=== PATIENT | female | born 1960 | race Caucasian/White ===

== ENCOUNTER 2017-04-23 17:16 | Inpatient (IN) | payer MEDICAID, OTHER ==
[2017-04-23] MEDS ORDERED: HALOPERIDOL LACTATE 5 MG/ML 1 ML VIAL IM PRN ×2 (17:35→21:53)
[2017-04-23] MEDS ORDERED: diphenhydrAMINE 50 MG/ML 1 ML VIAL IM STA (17:35)
[2017-04-23] MEDS ORDERED: LORazepam 2 MG/ML INJ IM STA (17:35)
--- NOTE | 2017-04-23 17:50 | ED ---
Psych HPI - General Chief Complaint: Psychiatric Symptoms Stated Complaint: mental health Time Seen by Provider: 04/23/17 17:18 - History of Present Illness Initial Comments: Patient is a 56-year-old female who is brought in by EMS in police custody after being found wandering outside of a local grocery store for 8 hours. The patient was sitting on a bench for a period of time when the requirements manager of the store called police. Police arrived on scene and then called EMS to evaluate her. Patient revealed to EMS staff that her mind is being controlled by a "uncle lorena" and that every other person in the world were just bad actors and a bed simulation. She was informed that she was going to be transported to the hospital she became very angry and combative. On arrival to the emergency department, the patient is screaming profanities at staff, she is very physically aggressive and forceful. She was immediately placed in 4. leather restraints and given chemical sedation - Related Data Home Medications Medication Instructions Recorded Confirmed Lisinopril-Hctz 20-25 mg 1 tab PO DAILY 01/06/16 04/23/17 [Zestoretic 20-25] Loratadine 10 mg PO DAILY 01/06/16 04/23/17 ALPRAZolam [Xanax] 0.25 mg PO DAILY PRN 04/23/17 04/23/17 Amoxicillin 875 mg PO BID 04/23/17 04/23/17 PARoxetine HCL [Paxil] 40 mg PO DAILY 04/23/17 04/23/17 Previous Rx's Medication Instructions Recorded amLODIPine BESYLATE [Norvasc] 10 mg PO DAILY #30 tablet 12/23/13 Allergies Allergy/AdvReac Type Severity Reaction Status Date / Time No Known Allergies Allergy Verified 04/23/17 18:48 Review of Systems ROS Statement: Those systems with pertinent positive or pertinent negative responses have been documented in the HPI. ROS Other: All systems not noted in ROS Statement are negative. Limitations: ROS unobtainable due to patients medical condition Past Medical History Past Medical History: Hypertension, Osteoarthritis (OA) Additional Past Medical History / Comment(s): bronchitis and pneumonia in the past History of Any Multi-Drug Resistant Organisms: None Reported Past Surgical History: Orthopedic Surgery Additional Past Surgical History / Comment(s): left ankle Past Anesthesia/Blood Transfusion Reactions: No Reported Reaction Past Psychological History: Anxiety, Depression Smoking Status: Former smoker Past Alcohol Use History: Occasional Past Drug Use History: Marijuana Additional Drug Use History / Comment(s): 30 years ago - Past Family History Mother Family Medical History: Rheumatoid Arthritis (RA) Additional Family Medical History / Comment(s): arrythmia Father Family Medical History: Diabetes Mellitus, Hyperlipidemia, Hypertension, Myocardial Infarction ([place]) General Exam General appearance: alert, in distress Head exam: Present: atraumatic, normocephalic Eye exam: Present: PERRL Respiratory exam: Present: normal lung sounds bilaterally Cardiovascular Exam: Present: tachycardia (Patient is tachycardic likely secondary to agitation) GI/Abdominal exam: Present: soft. Absent: distended, tenderness Neurological exam: Present: alert, altered Psychiatric exam: Present: agitated, other (Patient is having delusions of mind control. Patient is extremely agitated and physically combative.) Skin exam: Present: warm, dry, intact Course Vital Signs 04/23/17 18:15 Temperature 97.5 F L Pulse Rate 99 Respiratory 18 Rate Blood Pressure 150/65 O2 Sat by Pulse 93 L Oximetry Procedures - Restraint - Face to Face Restraint Occurrence 1 Patient's Immediate Situation: Endangers self safety, Endangers others' safety, Endangers staff safety, Violent behavior Patient's Reaction to the Intervention: Angry, Aggressive, Combative Patient's Medical & Behavioral Condition: Awake, Agitated, Paranoid, Flight of ideas, Bizarre behavior Need to Continue or Terminate Restraint or Seclusion: Continue Medical Decision Making - Medical Decision Making Patient presents with a chief complaint of psychosis. She was found by police and EMS and clearly has delusions of persecution and mind control. On initial evaluation, patient is extremely physically and verbally combative. She was placed in leather restraints and chemically sedated with Haldol Ativan and Benadryl. 9:44 PM Plan evaluation this patient is unremarkable. After medication, the patient is more calm and cooperative. At this time, she is still displaying psychotic features. The decision was made to admit this patient to the psychiatric floor. Patient remained stable in the emergency department. - Lab Data Result diagrams: 04/23/17 18:40 04/23/17 18:40 Lab Results 04/23/17 04/23/17 Range/Units 18:40 18:40 WBC 8.9 (3.8-10.6) k/uL RBC 4.59 (3.80-5.40) m/uL Hgb 13.8 (11.4-16.0) gm/dL Hct 40.9 (34.0-46.0) % MCV 89.1 (80.0-100.0) fL MCH 30.0 (25.0-35.0) pg MCHC 33.7 (31.0-37.0) g/dL RDW 14.0 (11.5-15.5) % Plt Count 308 (150-450) k/uL Neutrophils % 71 % Lymphocytes % 20 % Monocytes % 7 % Eosinophils % 1 % Basophils % 1 % Neutrophils # 6.3 (1.3-7.7) k/uL Lymphocytes # 1.8 (1.0-4.8) k/uL Monocytes # 0.6 (0-1.0) k/uL Eosinophils # 0.1 (0-0.7) k/uL Basophils # 0.1 (0-0.2) k/uL Sodium 139 (137-145) mmol/L Potassium 3.4 L (3.5-5.1) mmol/L Chloride 100 (98-107) mmol/L Carbon Dioxide 26 (22-30) mmol/L Anion Gap 13 mmol/L BUN 20 H (7-17) mg/dL Creatinine 0.84 (0.52-1.04) mg/dL Est GFR (MDRD) Af Amer >60 (>60 ml/min/1.73 sqM) Est GFR (MDRD) Non-Af >60 (>60 ml/min/1.73 sqM) Glucose 141 H (74-99) mg/dL Calcium 9.9 (8.4-10.2) mg/dL Total Bilirubin 0.8 (0.2-1.3) mg/dL AST 78 H (14-36) U/L ALT 117 H (9-52) U/L Alkaline Phosphatase 72 (38-126) U/L Creatine Kinase 533 H (30-135) U/L Total Protein 7.1 (6.3-8.2) g/dL Albumin 4.2 (3.5-5.0) g/dL TSH 2.310 (0.465-4.680) mIU/L Disposition Clinical Impression: Psychosis, Delusions Disposition: ADMITTED IP TO THIS HOSP Condition: Good Decision to Admit Reason: Admit from EC - Out of Hospital Transfer - Req. Specs Out of Hospital Transfer - Requested Specifics: Psychiatric Non-ICU
[2017-04-23] MEDS ORDERED: ZIPRASIDONE 20 MG VIAL IM STA (18:01)
[2017-04-23 19:02] LABS: Basophils # (A) 0.1 k/uL (0-0.2); Basophils % (A) 1 %; Eosinophils # (A) 0.1 k/uL (0-0.7); Eosinophils % (A) 1 %; HCT 40.9 % (34.0-46.0); HGB 13.8 gm/dL (11.4-16.0); Lymphocytes # (A) 1.8 k/uL (1.0-4.8); Lymphocytes % (A) 20 %; MCHC 33.7 g/dL (31.0-37.0); MCV 89.1 fL (80.0-100.0); Mean Platelet Volume 7.6; Monocytes # (A) 0.6 k/uL (0-1.0); Monocytes % (A) 7 %; Neutrophils # (A) 6.3 k/uL (1.3-7.7); Neutrophils % (A) 71 %; Platelet Count 308 k/uL (150-450); RBC 4.59 m/uL (3.80-5.40); WBC 8.9 k/uL (3.8-10.6)
[2017-04-23 19:11] LABS: ALT 117 U/L (9-52); AST 78 U/L (14-36); Albumin 4.2 g/dL (3.5-5.0); Alkaline Phosphatase 72 U/L (38-126); Anion Gap 13 mmol/L; Blood Urea Nitrogen 20 mg/dL (7-17); Calcium 9.9 mg/dL (8.4-10.2); Carbon Dioxide 26 mmol/L (22-30); Chloride 100 mmol/L (98-107); Creatine Kinase 533 U/L (30-135); Glucose 141 mg/dL (74-99); Potassium 3.4 mmol/L (3.5-5.1); Sodium 139 mmol/L (137-145); Total Bilirubin 0.8 mg/dL (0.2-1.3); Total Protein 7.1 g/dL (6.3-8.2)
[2017-04-23] MEDS ORDERED: ACETAMINOPHEN TAB 325 MG TAB PO PRN (21:47)
[2017-04-23] MEDS ORDERED: MAG HYDROX/AL HYDROX/SIMETH 30 ML CUP PO PRN (21:47)
[2017-04-23] MEDS ORDERED: MAGNESIUM HYDROXIDE 2,400 MG/10 ML CUP PO PRN (21:47)
[2017-04-23] MEDS ORDERED: LORazepam 2 MG/ML INJ IM PRN (21:54)
[2017-04-23 22:16] LABS: Amorphous Sediment,Urine Rare /hpf; Appearance,Urine Turbid (Clear); Bacteria,Urine Rare /hpf; Bilirubin,Urine Negative (Negative); Blood,Urine Negative (Negative); Color,Urine Yellow; Glucose,Urine (UA) Negative (Negative); Hyaline Casts,Urine 28 /lpf (0-2); Ketones,Urine 1+ (Negative); Leukocyte Esterase,Urine Trace (Negative); Mucus,Urine Few /hpf; Nitrite,Urine Negative (Negative); PH, Urine 5.5 (5.0-8.0); Protein,Urine Trace (Negative); RBC,Urine 1 /hpf (0-5); Specific Gravity,Urine 1.024 (1.001-1.035); Squamous Epithelial Cell,Urine 7 /hpf (0-4); WBC,Urine 3 /hpf (0-5)
[2017-04-23 22:25] LABS: Amphetamine Screen,Urine Not Detected (NotDetected); Barbiturate Screen,Urine Not Detected (NotDetected); Benzodiazepines Screen,Urine Detected (NotDetected); Cocaine Screen,Urine Not Detected (NotDetected); Methadone Screen, Urine Not Detected (NotDetected); Opiate Screen,Urine Not Detected (NotDetected); Oxycodone Screen, Urine Not Detected (NotDetected); Phencyclidine Screen,Urine Not Detected (NotDetected); Tricyclic Antidepressant,Urine Not Detected (NotDetected); Urn Cannabinoid Scrn Not Detected (NotDetected)
[2017-04-24] MEDS: amLODIPine 10 MG TAB PO SCH (11:19)
[2017-04-24] MEDS: LISINOPRIL-HCTZ 20-25 MG 1 EACH TAB PO SCH (11:20)
[2017-04-24] MEDS: PARoxetine 20 MG TAB PO SCH (11:20)
[2017-04-24] MEDS: POTASSIUM CHLORIDE ER 20 MEQ TAB.ER PO SCH ×2 (13:00→15:20)
[2017-04-24] MEDS: LORATADINE 10 MG TAB PO SCH (13:00)
--- NOTE | 2017-04-24 16:10 | CONS ---
CONSULTATION DATE OF CONSULTATION: 04/24/17. REASON FOR CONSULTATION: Medical management requested by Dr. Mchugh. CONSULTATION: This is a 56-year-old patient of Dr. Hines. Chronic stable medical conditions include hypertension, osteoarthritis, obesity, BMI 39.2. The patient states she was waiting outside for her boyfriend in the car. It was very cold and then she went inside the store, started walking up and down and then she was not feeling well and then she was sitting outside on the bench for a period of time. The forestry and wildlife manager of the store called the police. Per the EMS staff, she told them her mind was controlled by Uncle Dilip and that every person in the world were bad actors and bad simulation. She was told she will go to the hospital. She became very anxious, started screaming and she did feel right about coming to the hospital. Hence, she was brought here. She understands that this is not right. She had to be put under leather restraints. Right now she feels much better when I am doing my interview. REVIEW OF SYSTEMS: CONSTITUTIONAL: None. HEENT: None. RESPIRATORY: None. CARDIOVASCULAR: None. GASTROINTESTINAL: None. GENITOURINARY: None. MUSCULOSKELETAL: Arthritic pain in different joints. DERMATOLOGICAL, HEMATOLOGIC, LYMPHATIC: None. PSYCHIATRY: Psychotic symptoms as above. NEUROLOGICAL: None. PAST MEDICAL HISTORY: Hypertension, osteoarthritis, manic depression being followed by Dr. Hatfield, psychiatry. PAST SURGICAL HISTORY: Left ankle surgery. SOCIAL HISTORY: The patient smoked for 22 years, stopped 20 years ago. Drinks alcohol occasionally. Lives by herself; is on disability. FAMILY HISTORY: Rheumatoid arthritis, arrhythmia. HOME MEDICATIONS: Norvasc 10 mg a day, Paxil 40 mg a day, Claritin 10 mg a day, Zestoretic 20/25 one tablet p.o. daily. Amoxil 875 mg p.o. b.i.d., Xanax 0.25 p.o. daily p.r.n. ALLERGIES: None. EXAMINATION: Temperature 97.6, pulse 105, respiration 16, blood pressure 150/91, pulse ox 93% on room air. GENERAL APPEARANCE: Well built, BMI 39.2, sitting up, comfortable. EYES: Pupils equal. Conjunctivae normal. HEENT: Oral cavity normal. NECK: JVD not raised. Mass not palpable. RESPIRATORY: Effort lungs are clear. CARDIOVASCULAR: First and second sounds normal. No edema. ABDOMEN: Soft, nontender. Liver and spleen not palpable. LYMPHATIC: No lymph node palpable in the neck or axillae. PSYCHIATRY: Alert and oriented x3. Mood and affect slightly anxious appearing. MUSCULOSKELETAL: Osteoarthritis minimal in the hands. INVESTIGATIONS: White count 8.9, potassium 3.4, BUN 20, creatinine 0.84. TSH normal. Urine drug screen positive for benzodiazepines. ASSESSMENT: 1. Manic depressive disorder with acute psychotic episode could be precipitated by sitting out in the cold. 2. Obesity, BMI 39.2. 3. Essential hypertension. 4. Primary osteoarthritis. PLAN: Home medications are resumed. Patient said she sees dietitian as an outpatient for weight loss measures and should follow up with Dr. Hines for discharge. Psychiatry medications being adjusted by a psychiatrist. Care was discussed with the patient. Thank you, Dr. Mchugh. MMODL / CAMIN: [id number] /
[2017-04-24] MEDS: traZODone HCL 50 MG TAB PO SCH (21:07)
[2017-04-25] MEDS: LORazepam 1 MG TAB PO PRN ×2 (01:42→22:07)
--- NOTE | 2017-04-25 06:50 | HP ---
HISTORY AND PHYSICAL DATE OF SERVICE: 04/24/2017 IDENTIFYING DATA: The patient is a 56-year-old female. She lives independently. She was admitted through the emergency room. CHIEF COMPLAINT: The patient was agitated. She had disorganized behavior including sitting outside of a local grocery store for about 8 hours presumably waiting for her boyfriend to pick her up. She made comments about mind control. She had agitation. HISTORY OF PRESENTING ILLNESS: The patient has had significant long-term psychiatric problems. She has had past psychiatric hospitalizations with the last at this facility being January 07, 2016. I refer the reader to Dr. Womack's admission note and other documentation for details. At that time she was admitted for disorganized behavior, manic symptoms, and acute psychosis. She was admitted on petition for involuntary hospitalization. She was diagnosed with major depressive disorder, recurrent, with psychotic features. Rule out bipolar disorder. Discharge medications included Paxil 20 mg a day, Geodon 60 mg twice a day, Lamictal 200 mg a day and melatonin. She has had followup through [facility] and has been seen by a Dr. Hatfield for medication. She was somewhat vague about how consistent she has been with her medications. She does say that recently she was started on trazodone 100 mg at bedtime for sleep. Her current medications by her report include Paxil 40 mg a day and Xanax 0.25 mg daily. She works with Danae Elizalde for therapy. She was not able to provide a lot of information about her current issues. She suggested that her sleep was fair. She has loss of energy and motivation. When I discussed the situation of her being out side of a local store, she said that some time she was outdoors and other times she was in her car. She said she was waiting for her boyfriend. She was not able to provide much more detail beyond that. It is noted that when she presented to the emergency room, she got into quite a bit of agitation and required restraints and p.r.n. medications. She has been calm ever since. She is admitted for further evaluation. SUBSTANCE USE HISTORY: Negative by patient's report. Dr. Womack documented in December 2015 admission note that there were no significant substance use issues. PAST MEDICAL HISTORY: The patient has a diagnosis of obesity with a BMI of 39.2. She has essential hypertension and osteoarthritis. Further medical history and review of systems as per medical consultation. FAMILY AND SOCIAL HISTORY: The only information she provided was as above. I refer the reader to Dr. Womack's admission note of December 2015 for further details. MENTAL STATUS EXAM: Patient was somewhat restless. Eye contact was fair. She answered questions with brief responses. She was vague on answer. She did not provide much detail. Her affect was constricted. Her mood quiet, though she did not appear to be significantly depressed or distressed. It was difficult to clarify whether or not there were issues of thought disorder. On cognitive exam, she was oriented and alert. She did not make an effort to answer formal cognitive questions. She seemed to be reasonably aware of her immediate situation and could provide some details regarding issues over the last day relating to her hospitalization. Fund of knowledge and intellectual level appeared average or slightly below average. PHYSICAL EXAM: As per medical consultation of Dr. Hein. ASSESSMENT: This 56-year-old female is admitted for depression and rule out bipolar disorder. We only have limited information at present with observations of quite disorganized behavior. Will need to make efforts to get supporting information through [facility] and Dr. Hatfield along with possibly setting up meetings with her significant other or other appropriate supports. DIAGNOSES: 1. Major depression, chronic and recurrent. 2. Rule out bipolar affective disorder. 3. Hypertension. 4. Osteoarthritis. RECOMMENDATIONS: Patient will be admitted for comprehensive medical psychiatric and psychosocial evaluation. We will engage the patient in individual and group therapeutic activities. I will start the patient on Paxil 40 mg a day, which she has been taking. I will also start Desyrel 50 mg at bedtime. We will work to coordinate with outpatient resources for treatment and discharge planning. MMODL / IJN: [id number] /
[2017-04-25] MEDS: amLODIPine 10 MG TAB PO SCH (09:24)
[2017-04-25] MEDS: LISINOPRIL-HCTZ 20-25 MG 1 EACH TAB PO SCH (09:24)
[2017-04-25] MEDS: LORATADINE 10 MG TAB PO SCH (09:24)
[2017-04-25] MEDS: PARoxetine 20 MG TAB PO SCH (09:24)
[2017-04-25 10:14] LABS: ALT 127 U/L (9-52); AST 86 U/L (14-36); Albumin 3.9 g/dL (3.5-5.0); Alkaline Phosphatase 63 U/L (38-126); Anion Gap 12 mmol/L; Blood Urea Nitrogen 16 mg/dL (7-17); Carbon Dioxide 25 mmol/L (22-30); Chloride 100 mmol/L (98-107); Glucose 240 mg/dL (74-99); Potassium 4.2 mmol/L (3.5-5.1); Sodium 137 mmol/L (137-145); Total Bilirubin 0.6 mg/dL (0.2-1.3); Total Protein 6.7 g/dL (6.3-8.2)
[2017-04-25] MEDS: traZODone HCL 50 MG TAB PO SCH (20:17)
[2017-04-26 06:14] VITALS: TEMP 97.7
[2017-04-26] MEDS: PARoxetine 20 MG TAB PO SCH (08:40)
[2017-04-26] MEDS: amLODIPine 10 MG TAB PO SCH (08:41)
[2017-04-26] MEDS: LISINOPRIL-HCTZ 20-25 MG 1 EACH TAB PO SCH (08:41)
[2017-04-26] MEDS: LORATADINE 10 MG TAB PO SCH (08:41)
--- NOTE | 2017-04-26 10:12 | PN ---
PROGRESS NOTE DATE OF SERVICE: 04/25/2017 CHIEF COMPLAINT: The patient was agitated. She had disorganized behavior. She made comments about mind control. She was agitated. INTERVAL HISTORY: Patient has been doing fair. She had a quiet evening last night. She slept well. She says the trazodone helped. Today she has been up and about. She attends groups. She interacts with others. She seems to be doing better in her mood. Her thoughts are clear. When I talked to her today, she was able to acknowledge that what was going on that got her to the hospital was partly related to her having psychotic thinking. She acknowledges that she got paranoid. She was able to agree with the events that others described including her becoming agitated with EMG and also in the emergency room. She said her thoughts are clear. She believes that she started developing some delusional thinking over the previous weekend where she has felt that she was mistrusting others. She said that both at [place] and [facility] she had a good time. She was social. She felt that her thoughts were at order at that point. She could not really identify the specifics as to what may have made a difference. She does say today that her thoughts are clear. She has not had change in her general health. She tolerates psychotropic medications. MENTAL STATUS: Patient gave good eye contact. Psychomotor activity was a little slowed. Speech was appropriate. Her thoughts were clear. Her affect was a little blunted. Her mood was quiet. She did not appear to be distressed. ASSESSMENT: I will continue the current diagnosis and treatment plan. The patient appears to be making progress. I would look to discharge the patient in the next day or 2. We will make an effort to contact the patient's boyfriend or support friend as part of treatment and discharge planning. MMODL / IJN: [id number] /
--- NOTE | 2017-04-26 10:45 | DS ---
DISCHARGE SUMMARY DATE OF SERVICE: 04/26/2017 DATE OF ADMISSION: 04/23/2017 DATE OF DISCHARGE: 04/26/2017 ADMISSION AND DISCHARGE DIAGNOSES: 1. Major depression, chronic and recurrent with psychotic features. 2. Rule out bipolar affective disorder. 3. Hypertension. 4. Osteoarthritis. HISTORY OF PRESENTING ILLNESS: The patient was admitted due to problems she was having on the day of admission. She was at a store, presumably waiting for her boyfriend. She was there for about 8 hours. She was sitting inside for a while. She would be outside for a while. She was making strange statements such as that she was affected by mind control. She would talk excessively, have disorganized behavior and was not responding appropriately when others approached her. EMS was called. She became agitated at that point and continued to be quite distressed when she came to the hospital. She was agitated in the emergency room, feeling that people were coming after her to assault her. She required restraints. She was not able to provide much further information about the situation. She is followed by [facility] and sees Destiney Elizalde for therapy and Dr. Hatfield for medications. Current medications include Paxil 40 mg a day and Xanax 0.25 mg a day. She reported her sleep was fair. She had loss of energy and motivation. She was able to acknowledge a lot of distress though could not identify precipitants. She was admitted for further evaluation. PAST MEDICAL HISTORY AND PHYSICAL EXAM: As per medical consultation of Dr. Hein. MENTAL STATUS EXAM: The patient was somewhat restless. Eye contact fair. She answered questions with brief responses. Her answers were vague. She had a constricted affect. Her mood was quiet. She did not appear significantly distressed. It was difficult to clarify whether or not she had active symptoms of thought disorder. Cognitive exam was clear though she was not able to answer formal cognitive questions. COURSE OF HOSPITALIZATION: Patient was admitted for a comprehensive medical psychiatric and psychosocial evaluation. We engaged the patient in individual and group therapeutic activities. The patient was continued on Paxil 40 mg a day. Due to the sleep problem she was complaining about, she was also started on Desyrel 50 mg a day. Her Xanax which she had been taking on an outpatient basis was discontinued. The patient seemed to show fairly good resolution of her thought issues on the day after admission. She was able to talk about how she recognized her thoughts were delusional. She felt that her thoughts were becoming more organized and reality based since her admission. She says that she did not recognize any problem with delusions at [place] and she said she was social and spent time with people and did well. She could only recognize that perhaps sometime on the weekend prior to her admission, she started getting more paranoid. She could not really say what set off her issues. She does say that she had a boyfriend who she keeps in touch with on a daily basis. We made efforts to contact him though he did not answer his phone. We set up followup appointments through [facility]. The patient was able to engage in appropriate discharge planning. CONDITION AT DISCHARGE: Patient was stable. Mood was improved. Thoughts were clear. She tolerated her medications well. There was no indication of thought disorder. RECOMMENDATIONS AND FOLLOWUP: The patient is discharged to home. She lives alone. DISCHARGE MEDICATIONS INCLUDE: 1. Paxil 40 mg a day. 2. Trazodone 50 mg at bedtime. 3. Norvasc 10 mg daily. 4. Zestoretic one tablet daily. 5. Loratadine 10 mg daily. She has an appointment at the [facility] with Destiney Elizalde on 04/26/2017 at 11 a.m. She will be seen by Dr. Hatfield for medication follow up. She is also referred back to her primary care physician, Dr. Hines. MMJORDAN / CAMIN: [id number] /
[2017-04-26 14:18] VITALS: BP 140/67; PULSE 103; RESP 16
== END 2017-04-26 09:50 | disposition home or self-care (01) | DRG 885 ==
LOC: EC 17:16 → 3MHU 21:42
PROVIDERS: ADMIT Psychiatry & Neurology Psychiatry; ATTEND Psychiatry & Neurology Psychiatry
DX: F33.3 Major depressive disorder, recurrent, severe with psychotic symptoms (principal); Z78.1 Physical restraint status; F41.9 Anxiety disorder, unspecified; I10 Essential (primary) hypertension; M19.91 Primary osteoarthritis, unspecified site; E66.9 Obesity, unspecified; Z68.39 Body mass index [BMI] 39.0-39.9, adult; Z79.899 Other long term (current) drug therapy; Z87.891 Personal history of nicotine dependence; Z87.01 Personal history of pneumonia (recurrent)
CPT/HCPCS: 36415; 80053; 80306; 81001; 82075; 82550; 84443; 85025; 93005; 96372; 99285

== ENCOUNTER → 2017-07-11 | Outpatient (CLI) | payer OTHER ==
--- NOTE | 2017-07-11 11:46 | MM ---
Reason for exam: screening (asymptomatic). Baseline mammogram. History: Patient is postmenopausal and is nulliparous. Took hormonal contraceptives for 4 years. Physical Findings: Nurse did not find any significant physical abnormalities on exam. MG Screening Mammo w CAD Bilateral CC and MLO view(s) were taken. The breast tissue is almost entirely fat. Finding: There are typically benign round calcifications in both breasts. There is no dominant lesion. There is no discrete abnormality. These results were verbally communicated with the patient and result sheet given to the patient on 07/11/17. ASSESSMENT: Benign, BI-RAD 2 RECOMMENDATION: Routine screening mammogram of both breasts in 1 year.
== END | disposition home or self-care (01) ==
LOC: RADMAMWWP 10:44
PROVIDERS: ATTEND Family Medicine
DX: Z12.31 Encounter for screening mammogram for malignant neoplasm of breast (principal)
CPT/HCPCS: 77067

== ENCOUNTER 2018-01-14 08:14 | Emergency (ER) | payer MEDICARE, OTHER ==
[2018-01-14 08:26] VITALS: BP 164/81; PULSE 108; RESP 16; TEMP 98.2
[2018-01-14] MEDS ORDERED: FAMOTIDINE 20 MG TAB PO STA (08:37)
[2018-01-14] MEDS ORDERED: predniSONE 50 MG TAB PO STA (08:37)
[2018-01-14] MEDS ORDERED: diphenhydrAMINE 25 MG CAP PO STA (08:38)
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
--- NOTE | 2018-01-14 08:49 | ED ---
Medical Decision Making - Medical Decision Making The prescription printer was not working I did write them out on additional prescription pads Disposition Clinical Impression: Solar pruritus Disposition: HOME SELF-CARE Condition: Good Instructions: Itchy Skin (ED) Additional Instructions: Cool compresses as needed Prescriptions: diphenhydrAMINE [Benadryl] 25 mg PO QID PRN #28 capsule PRN Reason: Itching Famotidine [Pepcid] 20 mg PO BID #14 tablet predniSONE 20 mg PO BID #10 tab Is patient prescribed a controlled substance at d/c from ED?: No Referrals: Shalom Hines MD [Primary Care Provider] - 1-2 days
== END 2018-01-14 09:10 | disposition home or self-care (01) ==
LOC: EC 08:14
DX: L29.9 Pruritus, unspecified (principal); Z87.891 Personal history of nicotine dependence
CPT/HCPCS: 99282; J7512

== ENCOUNTER 2018-01-24 01:00 | Inpatient (IN) | payer MEDICARE, OTHER ==
[2018-01-24] MEDS ORDERED: METOCLOPRAMIDE 5 MG/ML 2 ML VIAL IVP STA (02:01)
[2018-01-24] MEDS ORDERED: diphenhydrAMINE 50 MG/ML 1 ML VIAL IVP STA (02:01)
[2018-01-24] MEDS ORDERED: SODIUM CHLORIDE 0.9% 1,000 ML IV STA (02:01)
[2018-01-24] MEDS ORDERED: cloNIDine HCL 0.1 MG TAB PO STA (02:02)
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
[2018-01-24 03:12] LABS: Anion Gap 12 mmol/L; Blood Urea Nitrogen 13 mg/dL (7-17); Calcium 9.7 mg/dL (8.4-10.2); Carbon Dioxide 24 mmol/L (22-30); Chloride 98 mmol/L (98-107); Glucose 124 mg/dL (74-99); Potassium 3.7 mmol/L (3.5-5.1); Sodium 134 mmol/L (137-145)
[2018-01-24 03:14] LABS: Basophils % (A) 0 %; Eosinophils # (A) 0.2 k/uL (0-0.7); Eosinophils % (A) 2 %; HGB 15.1 gm/dL (11.4-16.0); Lymphocytes # (A) 2.6 k/uL (1.0-4.8); Lymphocytes % (A) 24 %; MCH 29.9 pg (25.0-35.0); MCHC 34.4 g/dL (31.0-37.0); MCV 86.9 fL (80.0-100.0); Mean Platelet Volume 7.7; Monocytes # (A) 0.8 k/uL (0-1.0); Monocytes % (A) 7 %; Neutrophils # (A) 7.2 k/uL (1.3-7.7); Neutrophils % (A) 66 %; Platelet Count 274 k/uL (150-450); RBC 5.06 m/uL (3.80-5.40); RDW 13.5 % (11.5-15.5)
--- NOTE | 2018-01-24 03:24 | CT ---
EXAMINATION TYPE: CT brain wo con DATE OF EXAM: 01/24/2018 COMPARISON: None HISTORY: Headache CT DLP: 1072.30 mGycm Automated exposure control for dose reduction was used. FINDINGS: There is cerebral cortical atrophy. There is no mass effect nor midline shift. There is no sign of in tracranial hemorrhage. The calvarium appears intact. IMPRESSION: MILD CEREBRAL ATROPHY. NO ACUTE INTRACRANIAL ABNORMALITY.
[2018-01-24] MEDS ORDERED: ENALAPRILAT 1.25 MG/ML 1 ML VIAL IVP STA (03:54)
[2018-01-24 04:27] LABS: Appearance,Urine Clear (Clear); Bilirubin,Urine Negative (Negative); Blood,Urine Negative (Negative); Color,Urine Yellow; Glucose,Urine (UA) Negative (Negative); Ketones,Urine 1+ (Negative); Leukocyte Esterase,Urine Negative (Negative); Nitrite,Urine Negative (Negative); Protein,Urine Negative (Negative); Urobilinogen,Urine <2.0 mg/dL (<2.0)
--- NOTE | 2018-01-24 05:38 | XR ---
EXAMINATION TYPE: XR chest 2V DATE OF EXAM: 01/24/2018 COMPARISON: 12/14/2013 HISTORY: Headache. Chest pain TECHNIQUE: Frontal and lateral views of the chest are obtained. FINDINGS: Heart and mediastinum are normal. Lungs are clear. Costophrenic angles are clear. There ar e chest leads. IMPRESSION: No active cardiopulmonary disease. Normal heart. No change.
[2018-01-24] MEDS ORDERED: NALOXONE 0.4 MG/ML 1 ML VIAL IV PRN (06:29)
[2018-01-24] MEDS ORDERED: ACETAMINOPHEN TAB 325 MG TAB PO PRN (06:35)
[2018-01-24 07:43] LABS: Anion Gap 10 mmol/L; Basophils % (A) 0 %; Blood Urea Nitrogen 11 mg/dL (7-17); Calcium 9.2 mg/dL (8.4-10.2); Carbon Dioxide 25 mmol/L (22-30); Chloride 100 mmol/L (98-107); Eosinophils # (A) 0.2 k/uL (0-0.7); Eosinophils % (A) 1 %; Glucose 117 mg/dL (74-99); HCT 40.2 % (34.0-46.0); Lymphocytes # (A) 1.9 k/uL (1.0-4.8); Lymphocytes % (A) 11 %; MCH 30.7 pg (25.0-35.0); MCV 87.7 fL (80.0-100.0); Magnesium 1.8 mg/dL (1.6-2.3); Mean Platelet Volume 6.7; Monocytes # (A) 0.8 k/uL (0-1.0); Monocytes % (A) 5 %; Neutrophils # (A) 13.9 k/uL (1.3-7.7); Neutrophils % (A) 82 %; Platelet Count 291 k/uL (150-450); Potassium 3.4 mmol/L (3.5-5.1); RBC 4.58 m/uL (3.80-5.40); RDW 13.3 % (11.5-15.5); Sodium 135 mmol/L (137-145); WBC 16.9 k/uL (3.8-10.6)
[2018-01-24] MEDS ORDERED: amLODIPine 5 MG TAB PO STA (10:11)
--- NOTE | 2018-01-24 10:56 | P.CNPUL ---
History of Present Illness Consult date: 01/24/18 Requesting physician: Adebayo Hein Reason for consult: other (Critical care management) Chief complaint: Headache, loss of vision History of present illness: This is a pleasant 57-year-old female patient who follows with Dr. Hines as her primary care physician. She has a history of major depression with recurrent psychotic features, suspected bipolar disorder, hypertension, osteoarthritis. She presented to the emergency room early this morning with complaints of headache for several days including visual changes and temporary loss of vision. She has been without her medications since September 15 when she lost her insurance. She had previously been on Norvasc 10 mg daily and lisinopril HCT 2025 milligrams 1 tablet daily. Her presenting blood pressure was 217/88. She had been given clonidine, IV Vasotec and eventually started on nicardipine drip at 5 mg per hour. Her current blood pressure is 146/68. The patient is seen today in consultation in the emergency room. She is awake and alert. She states she does have a lingering headache and has trouble concentrating. No chest pain, palpitations, lightheadedness or dizziness. No shortness of breath, cough or congestion. She is maintaining O2 saturations in the mid 90s on room air. Chest x-ray shows no active cardiopulmonary process. Computed tomography scan of the brain reveals mild cerebral atrophy. No acute intracranial abnormalities. White count 16.9. Hemoglobin 14.0. Creatinine 0.61. Review of Systems Constitutional: Reports chronic headaches, Reports weakness Eyes: bilateral blurred vision Ears: deny: decreased hearing Ears, nose, mouth and throat: Reports headache Cardiovascular: Denies chest pain, Denies shortness of breath Respiratory: Denies cough Gastrointestinal: Denies abdominal pain, Denies diarrhea, Denies nausea, Denies vomiting Genitourinary: Denies dysuria, Denies hematuria Musculoskeletal: Denies myalgias Integumentary: Denies pruritus, Denies rash Neurological: Reports confusion, Reports headaches, Reports loss of vision Psychiatric: Reports anxiety, Reports depression Endocrine: Denies fatigue, Denies weight change Hematologic/Lymphatic: Reports as per HPI Allergic/Immunologic: Reports as per HPI Past Medical History Past Medical History: Hypertension, Osteoarthritis (OA) Additional Past Medical History / Comment(s): Recent generalized rash-took prednisone, arthritis in neck, back and L ankle, bronchitis and pneumonia in the past History of Any Multi-Drug Resistant Organisms: None Reported Past Surgical History: Orthopedic Surgery Additional Past Surgical History / Comment(s): left ankle fracture with surgery- has metal plate/screws and pins, dental work Past Anesthesia/Blood Transfusion Reactions: No Reported Reaction Smoking Status: Former smoker - Past Family History Mother Family Medical History: Rheumatoid Arthritis (RA) Additional Family Medical History / Comment(s): Mother had an arrythmia. She at the age of 69yrs which pt states was from kind of blockage-does not know type of blockage but states it was not in her heart. Father Family Medical History: Diabetes Mellitus, Hyperlipidemia, Hypertension, Myocardial Infarction ([place]) Additional Family Medical History / Comment(s): Father at the age of 69yrs from heart disease and diabetes. He had several MIs with the first [place] occuring at the age of 52 yrs. Medications and Allergies Home Medications Medication Instructions Recorded Confirmed Type Lisinopril-Hctz 20-25 mg 1 tab PO DAILY 01/24/18 01/24/18 History [Zestoretic 20-25] amLODIPine [Norvasc] 10 mg PO DAILY 01/24/18 01/24/18 History Allergies Allergy/AdvReac Type Severity Reaction Status Date / Time No Known Allergies Allergy Verified 01/24/18 06:50 Physical Exam Vitals: Vital Signs Temp Pulse Resp BP Pulse Ox 01/24/18 10:09 95 16 146/68 01/24/18 09:13 95 16 140/67 96 01/24/18 08:34 87 161/77 01/24/18 07:45 87 18 158/77 95 01/24/18 07:29 98 F 85 16 162/73 95 01/24/18 07:18 82 18 173/74 92 L 01/24/18 06:31 95 16 169/80 97 01/24/18 06:22 16 172/79 01/24/18 06:05 203/88 01/24/18 05:10 79 18 204/87 94 L 01/24/18 04:03 193/85 01/24/18 03:27 76 16 186/88 94 L 01/24/18 02:53 80 16 217/93 98 01/24/18 02:43 82 16 01/24/18 01:02 99.3 F 78 18 217/88 98 Intake and Output 01/23/18 01/24/18 01/24/18 22:59 06:59 14:59 Other: Weight 99.79 kg - Constitutional General appearance: obese - EENT Eyes: EOMI, PERRLA ENT: hearing grossly normal Ears: bilateral: normal - Neck Neck: normal ROM Carotids: bilateral: upstroke normal Thyroid: bilateral: normal size - Respiratory Respiratory: bilateral: CTA - Cardiovascular Rhythm: regular Heart sounds: normal: S1, S2 - Gastrointestinal General gastrointestinal: normal bowel sounds - Integumentary Integumentary: normal turgor - Neurologic Neurologic: CNII-XII intact - Musculoskeletal Musculoskeletal: generalized weakness - Psychiatric Psychiatric: A&O x's 3 Results - Laboratory Findings CBC and BMP: 01/24/18 07:21 01/24/18 07:21 Abnormal lab findings: Abnormal Labs 01/24/18 01/24/18 01/24/18 02:53 02:53 04:00 WBC 11.0 H Neutrophils # Sodium 134 L Potassium Glucose 124 H Urine Ketones 1+ H 01/24/18 01/24/18 07:21 07:21 WBC 16.9 H Neutrophils # 13.9 H Sodium 135 L Potassium 3.4 L Glucose 117 H Urine Ketones - Diagnostic Findings Chest x-ray: image reviewed Assessment and Plan Assessment: Impression: #1 Hypertensive emergency with headache and visual disturbances. Initiated on nicardipine drip at 5 mg per hour. Improved. Current blood pressure 146/68. #2 History of hypertension and had been off her medication since 09/15/2017. #3 History of major depression with suspected bipolar disorder. #4 Obesity. #5 History of noncompliance. Plan: The patient was seen and evaluated by Dr. Evans. The patient has improved and could be downgraded from critical care to selective care unit for continued monitoring. She is educated regarding the importance of medication compliance. Patient states there was an insurance issue that prevented her from filling her medications. We will continue to monitor her blood pressure closely. We' ll continue to follow and make further recommendations based on her clinical status. I, the cosigning physician, performed a history & physical examination of the patient. Lungs sounds are clear. Maintaining good O2 saturations in the 90s on room air. I discussed the assessment and plan of care with my nurse practitioner, Talia Ontiveros. I attest to the above note as dictated by her. Time with Patient: Greater than 30
[2018-01-24] MEDS ORDERED: LISINOPRIL-HCTZ 20-25 MG 1 EACH TAB PO SCH (11:00)
[2018-01-24] MEDS: cloNIDine HCL 0.1 MG TAB PO SCH ×2 (13:32→21:06)
--- NOTE | 2018-01-24 19:43 | HP ---
HISTORY AND PHYSICAL DATE OF ADMISSION: 01/24/2018 DATE OF SERVICE: 01/24/2018 PRESENTING COMPLAINT: High blood pressure. HISTORY OF PRESENTING COMPLAINT: This is a pleasant 57-year-old patient who follows with Dr. Hines. On September 15 the patient's insurance lapsed; apparently there was a change of insurance. The patient never got to take her medicines until about 2 days ago. Patient started back on her medications. With medication, patient's blood pressure was running around 170 systolic. Yesterday the patient was working in the yard in the sun. She also got some new glasses. The patient said the sun went into her eyes and then she had what was like a dark spell from both eyes for a few hours, had a headache, went inside the house, and patient then decided to present to the ER. Initial blood pressure was 217/88. The patient was put on a nicardipine drip and admitted to the ICU. Patient's blood pressure then started to come down. Since then, the patient's headache has improved. No further deficits in vision. No change in speech. No weakness in the arms. No trouble walking. Medications were further adjusted. Patient's chronic stable medical conditions otherwise include anxiety, depression, osteoarthritis. There was no chest pain, no palpitation. REVIEW OF SYSTEMS: CONSTITUTIONAL: Tired. HEENT: As above. RESPIRATORY: None. CARDIOVASCULAR: None. GASTROINTESTINAL: None. GENITOURINARY: None. MUSCULOSKELETAL: Arthritic pain in the joints. DERMATOLOGICAL: None. HEMATOLOGICAL: None. LYMPHATICS: None. PSYCHIATRY: Depression, controlled. NEUROLOGICAL: As above. No other focal. PAST MEDICAL HISTORY: 1. Hypertension. 2. Osteoarthritis. 3. Arthritis in the neck, back, left ankle. PAST SURGICAL HISTORY: 1. Left ankle fracture with surgery with metals, pins and screws. 2. Dental work. PSYCH HISTORY: Anxiety and depression. SOCIAL HISTORY: Lives by herself. She is on disability. Smoked for 24 years; stopped in . Denies alcohol. FAMILY HISTORY: Reviewed; noncontributory to presentation except that there is a family history of rheumatoid arthritis. HOME MEDICATIONS: Home medications that were just started for one day: amlodipine 10 mg a day and Zestoretic 20/25 one tablet p.o. daily. ALLERGIES: NONE. PHYSICAL EXAMINATION: VITAL SIGNS ON PRESENTATION: Temperature 99.3, pulse 78, respiration 18, blood pressure 217/88, pulse ox 98% on room air. GENERAL APPEARANCE: Well built; BMI of 41.6. Lying in bed, tired-appearing. EYES: Pupils equal. Conjunctivae normal. HEENT: External appearance of nose and ears normal. Oral cavity normal. NECK: JVD not raised. Mass not palpable. RESPIRATORY: Effort normal. LUNGS: Fair air entry. CARDIOVASCULAR: First and second sounds normal. No edema. ABDOMEN: Soft, non-tender. Liver and spleen not palpable. LYMPHATIC: No lymph node palpable in neck or axillae. PSYCHIATRY: Alert and oriented x3. Mood and affect normal. NEUROLOGICAL: Pupils equal. Cranial nerves grossly intact. Power and sensation grossly intact. INVESTIGATIONS: White count 11, hemoglobin 15.1 potassium 3.7. BUN and creatinine are normal. Troponin 0.012. UA negative for protein. EKG tracing, personally reviewed by me, shows normal sinus rhythm. Chest x-ray, personally reviewed by me, shows some cardiomegaly; otherwise lung roger are clear. CT scan of the brain: nil acute reported. ASSESSMENT: 1. Hypertensive emergency in a patient whose blood pressure was not controlled for some time, not taking her medications. Took one medication for one day, presented with very high blood pressure and temporary loss of vision in both eyes, which has now since resolved. There are no other focal symptoms. Patient initially was put on IV nicardipine drip, now switched to oral antihypertensive. 2. Morbid obesity with body mass index of 41.6. 3. Depression not otherwise specified. 4. Primary osteoarthritis in multiple joints. PLAN: The patient was on nicardipine drip. That was earlier discontinued. Patient was put on Norvasc 10 mg, Catapres 0.1 mg b.i.d., Zestoretic 20/25. Will increase that to twice a day. Also put the patient on a low-salt diet. Will consult dietitian for weight loss measures. Will order a 2-D echocardiogram to look for LVH and will also do a carotid Doppler. Patient recently had an eye checkup done and has a new set of glasses. The patient's visual symptoms have all resolved. Dr. Evans was also consulted for critical care. Care was discussed with the patient. MMODL / IJN: [id number] /
[2018-01-24] MEDS: ENOXAPARIN 40 MG/0.4 ML SYRINGE SQ SCH (21:05)
[2018-01-24] MEDS: LISINOPRIL-HCTZ 20-12.5 MG 1 EACH TAB PO SCH (21:06)
[2018-01-25 06:51] LABS: Basophils # (A) 0.1 k/uL (0-0.2); Basophils % (A) 1 %; Eosinophils # (A) 0.1 k/uL (0-0.7); Eosinophils % (A) 1 %; Lymphocytes # (A) 2.5 k/uL (1.0-4.8); Lymphocytes % (A) 27 %; MCH 29.4 pg (25.0-35.0); MCHC 34.1 g/dL (31.0-37.0); MCV 86.3 fL (80.0-100.0); Mean Platelet Volume 6.4; Monocytes # (A) 0.6 k/uL (0-1.0); Monocytes % (A) 7 %; Neutrophils # (A) 5.8 k/uL (1.3-7.7); Neutrophils % (A) 63 %; Platelet Count 311 k/uL (150-450); RBC 4.75 m/uL (3.80-5.40); RDW 13.4 % (11.5-15.5); WBC 9.2 k/uL (3.8-10.6)
[2018-01-25 06:53] VITALS: PULSE 82; RESP 16
[2018-01-25 07:02] LABS: Anion Gap 9 mmol/L; Blood Urea Nitrogen 12 mg/dL (7-17); Calcium 9.5 mg/dL (8.4-10.2); Carbon Dioxide 28 mmol/L (22-30); Chloride 99 mmol/L (98-107); Glucose 109 mg/dL (74-99); Magnesium 1.9 mg/dL (1.6-2.3); Potassium 3.8 mmol/L (3.5-5.1); Sodium 136 mmol/L (137-145)
--- NOTE | 2018-01-25 08:40 | US ---
EXAMINATION TYPE: US carotid duplex BILAT DATE OF EXAM: 01/25/2018 COMPARISON: NONE CLINICAL HISTORY: temp loss of vision. EXAM MEASUREMENTS: RIGHT: Peak Systolic Velocity (PSV) cm/sec ----- Right CCA: 71.5 ----- Right ICA: 93.1 ----- Right ECA: 99.6 ICA/CCA ratio: 1.3 RIGHT: End Diastole cm/sec ----- Right CCA: 18.4 ----- Right ICA: 38.2 ----- Right ECA: 9.1 LEFT: Peak Systolic Velocity (PSV) cm/sec ----- Left CCA: 80.2 ----- Left ICA: 80.3 ----- Left ECA: 101.2 ICA/CCA ratio: 1.0 LEFT: End Diastole cm/sec ----- Left CCA: 17.1 ----- Left ICA: 29.8 ----- Left ECA: 12.3 VERTEBRALS (direction of flow): Right Vertebral: Antegrade Left Vertebral: Antegrade Rhythm: Normal Mild to moderate amount of plaque visualized in bilateral bulbs. No elevated velocities. IMPRESSION: Mild to moderate degree of grayscale atheromatous plaquing with no sonographically evide nt hemodynamically significant stenosis within either visualized carotid arterial system.
[2018-01-25] MEDS ORDERED: amLODIPine 10 MG TAB PO SCH (09:00)
[2018-01-25] MEDS: LISINOPRIL-HCTZ 20-12.5 MG 1 EACH TAB PO SCH (09:08)
[2018-01-25] MEDS: ENOXAPARIN 40 MG/0.4 ML SYRINGE SQ SCH (09:08)
[2018-01-25] MEDS ORDERED: LORazepam 2 MG/ML INJ IV STA (09:35)
--- NOTE | 2018-01-25 10:09 | MR ---
EXAMINATION TYPE: MR brain wo/w con DATE OF EXAM: 01/25/2018 COMPARISON: CT brain 01/24/2018 HISTORY: Loss of vision for few hours with headache CONTRAST: Performed utilizing 10 mL intravenous Gadavist gadolinium contrast. TECHNIQUE: Multiplanar, multiecho imaging on a 3.0 Jess magnet is performed through the brain. Stud y is performed within 24 hours of arrival to the hospital. Fast protocol was utilized. The craniovertebral junction is normal. The pituitary is normal. Diffusion-weighted imaging is performed. No abnormal hyperintensity is present to suggest an acute i ntracranial infarct or acute ischemic change. There are scattered punctate areas of hyperintensity on T2 and Inversion Recovery weighted sequences which are non-specific but can be related to microvascular ischemic changes. This would include centr um semiovale, subcortical white matter, inferior left subcortical white matter. Some subtle white mat ter change may be within the right portion of the brainstem. Findings are nonspecific but likely rela diana to microvascular ischemic change. Differential would include other etiologies of white matter [place] n[place] including multiple sclerosis, vasculitis, Lyme disease, changes from migraine headaches. Ventricles and sulci are appropriate for the patient age. No abnormal enhancement is evident. The orbits as visualized appear normal. CSF surrounds the optic n erves and T2-weighted sequences. Optic chiasm is visualized appears normal. IMPRESSIONS: 1. Multiple white matter changes throughout the brain, greater than expected for the patient age. Gt rovascular ischemic change, migraine headache, multiple sclerosis could be considered among other jag ologies.
[2018-01-25] MEDS: cloNIDine HCL 0.1 MG TAB PO SCH (11:05)
--- NOTE | 2018-01-25 11:48 | P.PN ---
Subjective Progress Note Date: 01/25/18 Principal diagnosis: Hypertensive urgency This is a pleasant 57-year-old female patient who follows with Dr. Hines as her primary care physician. She has a history of major depression with recurrent psychotic features, suspected bipolar disorder, hypertension, osteoarthritis. She presented to the emergency room early this morning with complaints of headache for several days including visual changes and temporary loss of vision. She has been without her medications since September 15 when she lost her insurance. She had previously been on Norvasc 10 mg daily and lisinopril HCT 2025 milligrams 1 tablet daily. Her presenting blood pressure was 217/88. She had been given clonidine, IV Vasotec and eventually started on nicardipine drip at 5 mg per hour. Her current blood pressure is 146/68. The patient is seen today in consultation in the emergency room. She is awake and alert. She states she does have a lingering headache and has trouble concentrating. No chest pain, palpitations, lightheadedness or dizziness. No shortness of breath, cough or congestion. She is maintaining O2 saturations in the mid 90s on room air. Chest x-ray shows no active cardiopulmonary process. Computed tomography scan of the brain reveals mild cerebral atrophy. No acute intracranial abnormalities. White count 16.9. Hemoglobin 14.0. Creatinine 0.61. The patient is seen again today 01/25/2018 in follow-up on the selective care unit. She is currently awake and alert in no acute distress. She is doing quite a bit better today as compared to yesterday. Stating her head is clear, no confusion. She does have ongoing headache. Her blood pressure is improved currently 137/74. She's afebrile. Maintaining good O2 saturations in the 90s on room air. No shortness of breath, cough or congestion. White count 9.2. Hemoglobin 14.0. Creatinine 0.70. She remains on amlodipine, clonidine, lisinopril HCTZ. MRI of the brain revealed multiple white matter changes throughout the brain, greater than expected for the patient's age. Microvascular ischemic change, migraine headache, multiple sclerosis within the differential's. Carotid dopplers revealed no significant carotid stenosis. Objective - Vital Signs Vital signs: Vital Signs Temp 98.2 F 01/25/18 09:09 Pulse 82 01/25/18 09:09 Resp 16 01/25/18 09:09 BP 137/74 01/25/18 09:09 Pulse Ox 98 01/25/18 09:09 Intake & Output 01/24/18 01/25/18 01/25/18 18:59 06:59 18:59 Intake Total 482 Balance 482 Weight 89.2 kg Intake: Intake, IV Titration 260 Amount niCARdipine 25 mg In 260 Sodium Chloride 0.9% 250 ml @ 5 MG/HR 52 mls/hr IV .Q5H ONE Rx#:[id number] Oral 222 Other: # Voids 1 - Constitutional General appearance: Present: cooperative, no acute distress, obese - EENT Eyes: Present: EOMI, PERRLA ENT: Present: hearing grossly normal Ears: bilateral: normal - Neck Neck: Present: normal ROM Carotids: bilateral: upstroke normal Thyroid: bilateral: normal size - Respiratory Respiratory: bilateral: CTA - Cardiovascular Rhythm: regular Heart sounds: normal: S1, S2 - Gastrointestinal General gastrointestinal: Present: normal bowel sounds - Integumentary Integumentary: Present: normal turgor - Neurologic Neurologic: Present: CNII-XII intact - Musculoskeletal Musculoskeletal: Present: gait normal - Psychiatric Psychiatric: Present: A&O x's 3, appropriate affect, intact judgment & insight - Labs CBC & Chem 7: 01/25/18 06:30 01/25/18 06:30 Labs: Abnormal Lab Results - Last 24 Hours (Table) 01/25/18 Range/Units 06:30 Sodium 136 L (137-145) mmol/L Glucose 109 H (74-99) mg/dL - Imaging and Cardiology MRI - head: report reviewed Assessment and Plan Assessment: Impression: #1 Hypertensive emergency with headache and visual disturbances. Improved. Currently on clonidine, lisinopril HCTZ, amlodipine. Carotid Dopplers revealed no significant carotid stenosis. MRI of the brain revealed multiple white matter changes throughout the brain, greater than expected for the patient's age. There is microvascular ischemic change, migraine headache, multiple sclerosis, vasculitis, Lyme disease within the differential. #2 History of hypertension and had been off her medication since 09/15/2017. #3 History of major depression with suspected bipolar disorder. #4 Obesity. #5 History of noncompliance. Plan: The patient was seen and evaluated by Dr. Evans. She remains stable from the pulmonary standpoint. Continue with her current treatment plan. Lovenox for DVT prophylaxis. Social work is involved regarding financing her necessary medications. I, the cosigning physician, performed a history & physical examination of the patient. Lungs sounds are clear. Maintaining good O2 saturations in the 90s on room air. I discussed the assessment and plan of care with my nurse practitioner, Talia Ontiveros. I attest to the above note as dictated by her.
[2018-01-25] MEDS ORDERED: ONDANSETRON 4 MG/2 ML VIAL IVP PRN (12:58)
[2018-01-25 17:19] VITALS: BP 136/60; TEMP 97.7
--- NOTE | 2018-01-25 18:11 | ECHOF ---
Referral Reason:HTN MEASUREMENTS -------- HEIGHT: 154.9 cm WEIGHT: 88.9 kg BP: 170/77 IVSd: 1.7 cm (0.6 - 1.1) LVIDd: 3.1 cm (3.9 - 5.3) LVPWd: 1.8 cm (0.6 - 1.1) IVSs: 2.0 cm LVIDs: 1.8 cm LVPWs: 2.2 cm Ao Diam: 3.1 cm (2.0 - 3.7) AV Cusp: 2.0 cm (1.5 - 2.6) LA Diam: 3.3 cm (2.7 - 3.8) MV EXCURSION: 12.495 mm (> 18.000) MV EF SLOPE: 38 mm/s (70 - 150) EPSS: 0.3 cm MV E Damien: 0.40 m/s MV DecT: 197 ms MV A Damien: 0.56 m/s MV E/A Ratio: 0.70 RAP: 5.00 mmHg RVSP: 10.65 mmHg FINDINGS -------- Sinus rhythm. This was a technically good study. The left ventricular size is normal. There is severe concentric left ventricular hypertrophy. Ove rall left ventricular systolic function is normal with, an EF between 55 - 60 %. The right ventricle is normal in size and function. The left atrium is normal in size. The right atrium is normal in size. The aortic valve is trileaflet and appears structurally normal. The mitral valve leaflets are mildly thickened. Mild mitral regurgitation is present. Mild tricuspid regurgitation present. The right ventricular systolic pressure, as measured by Doppl er, is 10.65mmHg. Pulmonic valve appears structurally normal. The aortic root size is normal. The pericardium is normal. CONCLUSIONS -------- 1. Sinus rhythm. 2. This was a technically good study. 3. The left ventricular size is normal. 4. There is severe concentric left ventricular hypertrophy. 5. Overall left ventricular systolic function is normal with, an EF between 55 - 60 %. 6. The right ventricle is normal in size and function. 7. The left atrium is normal in size. 8. The right atrium is normal in size. 9. The aortic valve is trileaflet and appears structurally normal. 10. The mitral valve leaflets are mildly thickened. 11. Mild mitral regurgitation is present. 12. Mild tricuspid regurgitation present. 13. The right ventricular systolic pressure, as measured by Doppler, is 10.65mmHg. 14. Pulmonic valve appears structurally normal. 15. The aortic root size is normal. 16. The pericardium is normal. SCIENTIFIC SOFTWARE DEVELOPER: Valerie Randle RDCS
--- NOTE | 2018-01-30 | DS ---
DISCHARGE SUMMARY DATE OF ADMISSION: 01/24/2018 DATE OF DISCHARGE: 01/25/2018 FINAL DIAGNOSES: 1. Hypertensive emergency, present on admission. 2. Morbid obesity with body mass index 41.6. 3. Depression not otherwise specified. 4. Primary osteoarthritis in multiple joints. 5. Hypertensive heart disease, severe. HOSPITAL COURSE: This patient presented with hypertensive emergency, blood pressure over 200, and temporary loss of vision, which completely resolved. Patient was initially put on IV nicardipine drip. She did have a CT scan of the brain which did not show anything acute. MRI of the brain showed some chronic white matter changes, scattered. Patient did not want to wait for any further workup and insisted that she would follow up with Neurology as an outpatient. Since there were no deficits, and patient was doing better, she is going to follow up with Dr. Kern. A 2D echocardiogram showed an EF of 55% to 60% with with severe concentric left ventricular hypertrophy. Initial blood pressure was very high. By the time of discharge, blood pressure has come down nicely to 136/60. LABS: White count 9.2, hemoglobin 14. BUN and creatinine are normal. Care was discussed with the patient. Questions were answered. CONSULTATION: Dr. Evans from Critical Care. DISCHARGE MEDICATIONS: 1. Aspirin 81 mg a day. 2. Catapres 0.1 mg p.o. b.i.d. 3. Zestoretic 20/12.5 was discontinued. 4. Norvasc 10 mg a day. Follow up with Dr. Fred Kern in one week. Follow up with Dr. Shalom Hines in one week. MMODL / IJN: [id number] /
== END 2018-01-25 18:25 | disposition home or self-care (01) | DRG 305 ==
LOC: EC 01:00 → 6ICU 06:29 → 6SEL 14:58
PROVIDERS: ADMIT Hospitalist; ATTEND Hospitalist
DX: I16.1 Hypertensive emergency (principal); Z68.41 Body mass index [BMI] 40.0-44.9, adult; E66.01 Morbid (severe) obesity due to excess calories; F32.9 Major depressive disorder, single episode, unspecified; F41.9 Anxiety disorder, unspecified; I10 Essential (primary) hypertension; M15.9 Polyosteoarthritis, unspecified; R51 Headache; M06.9 Rheumatoid arthritis, unspecified; H53.9 Unspecified visual disturbance; Z79.899 Other long term (current) drug therapy; Z91.14 Patient's other noncompliance with medication regimen; Z87.891 Personal history of nicotine dependence; Z87.01 Personal history of pneumonia (recurrent); Z83.3 Family history of diabetes mellitus; Z82.49 Family history of ischemic heart disease and other diseases of the circulatory system; Z84.89 Family history of other specified conditions
CPT/HCPCS: 36415; 70450; 70553; 71046; 80048; 81003; 83735; 84100; 84484; 85025; 93005; 93306; 93880; 96361; 96365; 96366; 96375; 99291

== ENCOUNTER 2018-05-08 01:34 | Emergency (ER) | payer MEDICARE, OTHER ==
[2018-05-08 01:44] VITALS: RESP 18
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
[2018-05-08 03:17] LABS: Amphetamine Screen,Urine Not Detected (NotDetected); Barbiturate Screen,Urine Not Detected (NotDetected); Benzodiazepines Screen,Urine Not Detected (NotDetected); Cocaine Screen,Urine Not Detected (NotDetected); Methadone Screen, Urine Not Detected (NotDetected); Opiate Screen,Urine Not Detected (NotDetected); Oxycodone Screen, Urine Not Detected (NotDetected); Phencyclidine Screen,Urine Not Detected (NotDetected); Tricyclic Antidepressant,Urine Not Detected (NotDetected); Urn Cannabinoid Scrn Detected (NotDetected)
[2018-05-08] MEDS ORDERED: LORazepam 1 MG TAB PO STA (03:24)
[2018-05-08 05:10] LABS: Basophils # (A) 0.1 k/uL (0-0.2); Basophils % (A) 1 %; Eosinophils # (A) 0.2 k/uL (0-0.7); Eosinophils % (A) 2 %; HCT 38.7 % (34.0-46.0); HGB 12.6 gm/dL (11.4-16.0); Lymphocytes # (A) 2.5 k/uL (1.0-4.8); Lymphocytes % (A) 25 %; MCHC 32.5 g/dL (31.0-37.0); MCV 92.2 fL (80.0-100.0); Mean Platelet Volume 6.4; Monocytes # (A) 0.6 k/uL (0-1.0); Monocytes % (A) 6 %; Neutrophils # (A) 6.3 k/uL (1.3-7.7); Neutrophils % (A) 63 %; Platelet Count 385 k/uL (150-450); RDW 13.2 % (11.5-15.5)
[2018-05-08 05:13] LABS: Appearance,Urine Clear (Clear); Bilirubin,Urine Negative (Negative); Blood,Urine Negative (Negative); Color,Urine Light Yellow; Glucose,Urine (UA) Negative (Negative); Ketones,Urine Negative (Negative); Leukocyte Esterase,Urine Large (Negative); Mucus,Urine Rare /hpf; Nitrite,Urine Negative (Negative); PH, Urine 5.5 (5.0-8.0); Protein,Urine Negative (Negative); RBC,Urine 5 /hpf (0-5); Specific Gravity,Urine 1.007 (1.001-1.035); Squamous Epithelial Cell,Urine 1 /hpf (0-4); Urobilinogen,Urine <2.0 mg/dL (<2.0); WBC,Urine 13 /hpf (0-5)
[2018-05-08 05:15] LABS: ALT 26 U/L (9-52); AST 19 U/L (14-36); Albumin 3.6 g/dL (3.5-5.0); Alkaline Phosphatase 67 U/L (38-126); Anion Gap 6 mmol/L; Blood Urea Nitrogen 15 mg/dL (7-17); Calcium 9.6 mg/dL (8.4-10.2); Carbon Dioxide 30 mmol/L (22-30); Chloride 104 mmol/L (98-107); Glucose 129 mg/dL (74-99); Potassium 3.9 mmol/L (3.5-5.1); Sodium 140 mmol/L (137-145); Total Bilirubin 0.2 mg/dL (0.2-1.3); Total Protein 6.4 g/dL (6.3-8.2)
[2018-05-08 11:08] VITALS: BP 163/75; PULSE 89; TEMP 97.9
== END 2018-05-08 12:01 ==
LOC: EC 01:34
DX: F32.9 Major depressive disorder, single episode, unspecified (principal); R45.851 Suicidal ideations; R41.82 Altered mental status, unspecified; R00.0 Tachycardia, unspecified; I10 Essential (primary) hypertension; F41.9 Anxiety disorder, unspecified; Z87.891 Personal history of nicotine dependence; Z79.899 Other long term (current) drug therapy; Z82.49 Family history of ischemic heart disease and other diseases of the circulatory system
CPT/HCPCS: 36415; 80053; 80306; 80320; 81001; 81025; 82075; 85025; 99285

== ENCOUNTER → 2018-08-09 | Outpatient (CLI) | payer MEDICARE ==
--- NOTE | 2018-08-09 15:23 | XR ---
EXAMINATION TYPE: XR lumbosacral spine min 4V DATE OF EXAM: 08/09/2018 CLINICAL HISTORY: Low back pain TECHNIQUE: Frontal, lateral, and oblique images of the lumbar spine are obtained. COMPARISON: 07/08/2015 FINDINGS: There are 5 lumbar type vertebral bodies identified. There is a mild levoscoliosis of the lumbar spine although progressed from the prior. There is persistent grade 1 anterolisthesis of L4 on L5, also slightly progressed from the prior now measuring approximately 8 mm and previously measurin g approximately 6 mm. There is minimal retrolisthesis of L1 on L2, L2 on L3 and L3 and L4. Findings a re likely on a degenerative basis. Bridging anterior osteophytes are seen of the lower thoracic spine and small anterior osteophytes of the lumbar spine. Facet arthropathy is present from L3 through S1 with intervertebral disc space narrowing at L5-S1. Mild atherosclerosis of the abdominal aorta. Obliq ue images demonstrate no definite pars interarticularis defects and neural foraminal narrowing is mg pected at L5-S1 and L4-L5. IMPRESSION: 1. No acute fracture or malalignment is seen in the lumbar spine. 2. Progression of degenerative disc disease in comparison the prior with progression of anterolisthes is of L4 on L5 and new multilevel retrolisthesis all likely on a degenerative basis. 3. Mild levoscoliosis of the lumbar spine.
--- NOTE | 2018-08-09 15:26 | XR ---
EXAMINATION TYPE: XR cervical spine comp DATE OF EXAM: 08/09/2018 TECHNIQUE: Frontal, lateral, oblique, swimmers, and open mouth view of the cervical spine are obtaine d. HISTORY: M54.2 cervicalgia COMPARISON: None FINDINGS: There is straightening of the usual cervical lordosis. The cervical spine is visualized in its entirety from C1 thru the top of T1 level, it is satisfactory in alignment without evidence of ac theresa fracture or dislocation. Multilevel intervertebral disc space narrowing and anterior osteophytes are seen. The pre-vertebral soft tissue appears within normal limits. Mild multilevel uncovertebral h ypertrophy is seen however no yovana neural foraminal narrowing is seen on the oblique images. This co uld be better evaluated with MRI. The C1-C2 articulation is within normal limits on the open mouth vi ew. Atherosclerosis is incidentally noted of the carotid bulbs. IMPRESSION: 1. No acute fracture or malalignment is seen in the cervical spine. 2. Moderate degenerative disc disease of the cervical spine and straightening of usual cervical lordo sis that may relate to muscular sprain/spasm.
== END | disposition home or self-care (01) ==
LOC: RADXRMAIN 14:11
PROVIDERS: ATTEND Family Medicine
DX: M50.30 Other cervical disc degeneration, unspecified cervical region (principal); M51.36 Other intervertebral disc degeneration, lumbar region; M43.16 Spondylolisthesis, lumbar region; M41.86 Other forms of scoliosis, lumbar region
CPT/HCPCS: 72050; 72110

== ENCOUNTER → 2018-08-20 | Outpatient (CLI) | payer MEDICARE, OTHER ==
--- NOTE | 2018-08-22 08:45 | MM ---
Reason for exam: screening (asymptomatic). Last mammogram was performed 1 year and 1 month ago. History: Patient is postmenopausal and is nulliparous. Took hormonal contraceptives for 4 years. Physical Findings: A clinical breast exam by your physician is recommended on an annual basis and results should be correlated with mammographic findings. MG 3D Screening Mammo W/Cad Bilateral CC and MLO view(s) were taken. Prior study comparison: July 11, 2017, bilateral MG screening mammo w CAD. There are scattered fibroglandular densities. No significant changes when compared with prior studies. ASSESSMENT: Negative, BI-RAD 1 RECOMMENDATION: Routine screening mammogram of both breasts in 1 year.
== END | disposition home or self-care (01) ==
LOC: RADMAMWWP 14:46
PROVIDERS: ATTEND Family Medicine
DX: Z12.31 Encounter for screening mammogram for malignant neoplasm of breast (principal)
CPT/HCPCS: 77063; 77067

== ENCOUNTER 2018-11-21 04:20 | Emergency (ER) | payer MEDICARE, OTHER ==
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
[2018-11-21 04:37] VITALS: RESP 18; TEMP 98.9
--- NOTE | 2018-11-21 05:35 | CT ---
EXAM: CT Cervical Spine Without Intravenous Contrast CLINICAL HISTORY: Pain TECHNIQUE: Axial computed tomography images of the cervical spine without intravenous contrast. CTDI is 18.37 mGy and DLP is 500.8 mGy-cm. This CT exam was performed using one or more of the following dose reduction techniques: automated exposure control, adjustment of the mA and/or kV according to patient size, and/or use of iterative reconstruction technique. Coronal and sagittal reconstructions are performed COMPARISON: Cervical spine radiographs from 08/09/2018 FINDINGS: Vertebrae: 4 mm chip fracture at the tip of C6 spinous process, superiorly displaced by about 2 mm, previously inferiorly displaced by about 4 mm. Discs/spinal canal/neural foramina: Moderate degenerative disc disease, worse in the lower cervical spine. Soft tissues: Unremarkable. IMPRESSION: No acute subluxation or fracture.
--- NOTE | 2018-11-21 05:39 | CT ---
EXAM: CT Cervical Spine Without Intravenous Contrast CLINICAL HISTORY: ITS.REASON CT Reason: pain TECHNIQUE: Axial computed tomography images of the cervical spine without intravenous contrast. CTDI is 18 mGy and DLP is 496 mGy-cm. This CT exam was performed using one or more of the following dose reduction techniques: automated exposure control, adjustment of the mA and/or kV according to patient size, and/or use of iterative reconstruction technique. COMPARISON: No relevant prior studies available. FINDINGS: Vertebrae: No acute fracture. Discs/spinal canal/neural foramina: Degenerative changes from C5-C7. No high grade spinal canal stenosis. Soft tissues: Unremarkable. IMPRESSION: No acute fracture or subluxation.
[2018-11-21] MEDS ORDERED: ACETAMINOPHEN TAB 500 MG TAB PO STA (06:18)
--- NOTE | 2018-11-21 06:26 | XR ---
EXAM: XR Lumbar Spine, 3 Views CLINICAL HISTORY: Pain TECHNIQUE: Frontal, coned down lateral and lateral views of the lumbar spine. COMPARISON: 08-09-18 FINDINGS: Vertebrae: 7 mm anterolisthesis of L4 on L5. No compression fracture. Disc spaces: No acute findings. No significant narrowing. Soft tissues: Paravertebral soft tissues appear normal. Small amount aortic calcifications. IMPRESSION: No acute findings or substantial change.
[2018-11-21 07:14] VITALS: BP 146/97; PULSE 96
== END 2018-11-21 07:11 | disposition home or self-care (01) ==
LOC: EC 04:20
DX: T74.11XA Adult physical abuse, confirmed, initial encounter (principal); M54.2 Cervicalgia; M54.9 Dorsalgia, unspecified; I10 Essential (primary) hypertension; F41.9 Anxiety disorder, unspecified; F32.9 Major depressive disorder, single episode, unspecified; Z87.39 Personal history of other diseases of the musculoskeletal system and connective tissue; Z87.891 Personal history of nicotine dependence; Z79.899 Other long term (current) drug therapy; Y07.03 Male partner, perpetrator of maltreatment and neglect; Y04.8XXA Assault by other bodily force, initial encounter
CPT/HCPCS: 70490; 72100; 72125; 99284

== ENCOUNTER → 2018-12-03 | Outpatient (CLI) | payer MEDICARE, OTHER ==
--- NOTE | 2018-12-05 10:29 | MR ---
EXAMINATION TYPE: MR cspine/lspine wo con DATE OF EXAM: 12/03/2018 COMPARISON: None HISTORY: 58-year-old female with cervicalgia and Low back pain TECHNIQUE: Multiplanar, multisequence imaging of the cervical followed by the lumbar spine is perform ed without IV contrast. FINDINGS: CERVICAL SPINE: No craniocervical junction abnormality, predental space widening, or prevertebral soft tissue swellin g. Reversal of the normal cervical lordosis but with preserved alignment. Heterogeneous marrow signal in part due to Modic type II fatty endplate change mid to lower cervical spine. Moderate disc degenerative change with a desiccated and narrowed discs with discussed by complex form ation particularly at C4-C7 levels. We note a grade 1 anterolisthesis at T2-T3 secondary to hypertrophic facet arthropathy. There is righ t paracentral disc extrusion with some superior migration of disc material at this level. Mild bilate ral neuroforaminal stenosis here. At C2-C3, mild uncovertebral joint and facet degenerative changes without canal or foraminal stenosis . At C3-C4, mild facet and uncovertebral joint degenerative change without significant canal or foramin al stenosis. At C4-C5, there is right paracentral discussed by complex weights abuts and slightly indents the vent ral cord minimally narrowing the spinal canal. There is mild uncovertebral joint and facet degenerati ve change mildly narrowing the right neuroforamen. At C5-C6, disc osteophyte complex with a uncovertebral joint and facet degenerative change. Mild left neuroforaminal narrowing and overall mild narrowing of the spinal canal with slight abutment of the ventral cord. At C6-C7, broad-based disc osteophyte complex with uncovertebral joint and mild facet degenerative ch samm. No significant canal or foraminal stenosis. At C7-T1, no canal or foraminal stenosis. No prevertebral or paravertebral soft tissue abnormality seen. Normal course and signal intensity of the cervical spinal cord. LUMBAR SPINE: Vertebral body heights are preserved. There is prominent grade 1 anterolisthesis at L4-L5 secondary to severe hypertrophic facet arthropath y at the lower lumbar spine. Moderate degenerative disc disease with desiccated, narrowed, and bulging disks mid to lower lumbar s pine. Associated Modic type II fatty endplate change particularly at L5-S1. Ligamentum flavum thickening also noted at L5-S1. Conus medullaris is normal. No prevertebral or paravertebral soft tissue abnormality seen. At T12-L1, mild bulging disc without canal or foraminal stenosis. At L1-L2, facet arthropathy with mild bulging disc and trace grade 1 retrolisthesis. There is mild le ft neuroforaminal stenosis without spinal canal stenosis. At L2-L3, mild bulging disc with hypertrophic facet arthropathy. Changes result in no significant can al or foraminal stenosis. At L3-L4, there is bulging disc with ligamentum flavum thickening and hypertrophic facet arthropathy. Changes result in mild to moderate focal spinal canal stenosis with mild to moderate bilateral neuro foraminal stenosis, right greater than left. At L4/L5, severe hypertrophic facet arthropathy with ligamentum flavum thickening and grade 1 anterol isthesis with uncovering of the posterior intervertebral disc. Changes result in severe focal spinal canal stenosis with moderate to severe left and moderate right neural foraminal stenosis. At L5-S1, bulging disc with facet arthropathy. Changes result in mild left and moderate right neurofo raminal stenosis but with possible impingement of the exiting right L5 nerve root. COMBINED IMPRESSION: CERVICAL SPINE: 1. Moderate degenerative disc disease particularly from C4 through C7 levels with bone dictated to fa tty endplate change. 2. Scattered facet and uncovertebral joint arthropathy and reversal of the normal cervical lordosis. 3. Disc osteophyte complexes contributory to mild narrowing of the spinal canal at C4-C5 and C5-C6. T here is some abutment and slight ventral cord flattening at these levels but no canal compromise or c ord compression. 4. Variable mild neuroforaminal narrowing as outlined above. 5. Incidental small right paracentral disc extrusion with superior migration of disc material at T2-T 3. There is hypertrophic facet arthropathy here at this level with grade 1 anterolisthesis and mild b ilateral neural foraminal stenoses. LUMBAR SPINE: 1. Moderate degenerative disc disease mid to lower lumbar spine along with advanced hypertrophic face t arthropathy. 2. Changes results in a grade 1 anterolisthesis at L4-L5. Along with ligamentum flavum thickening her e, there is a severe focal spinal canal stenosis with moderate to severe left and moderate right neur oforaminal stenosis at this level. 3. Mild to moderate spinal canal stenosis at L3-L4. 4. Moderate right neuroforaminal stenosis at L5-S1 but with possible impingement of the exiting right L5 nerve root here.
== END | disposition home or self-care (01) ==
LOC: RADMRIMAIN 12:21
PROVIDERS: ATTEND Family Medicine
DX: M48.02 Spinal stenosis, cervical region (principal); M48.061 Spinal stenosis, lumbar region without neurogenic claudication; M48.07 Spinal stenosis, lumbosacral region; M43.12 Spondylolisthesis, cervical region; M43.16 Spondylolisthesis, lumbar region; M50.321 Other cervical disc degeneration at C4-C5 level; M51.36 Other intervertebral disc degeneration, lumbar region; M46.92 Unspecified inflammatory spondylopathy, cervical region; M46.96 Unspecified inflammatory spondylopathy, lumbar region
CPT/HCPCS: 72141; 72148

== ENCOUNTER 2019-04-01 16:53 | Inpatient (IN) | payer MEDICARE, MEDICAID ==
--- NOTE | 2019-04-01 18:35 | ED ---
Psych HPI - General Source: patient, RN notes reviewed, old records reviewed <Rafat El - Last Filed: 04/01/19 22:04> - General Source: EMS Mode of arrival: EMS - History of Present Illness MD Complaint: altered mental status, other (Psychosis) -: days(s) Associated Psychiatric Symptoms: depression History of same: Yes Quality: constant Improves With: none Associated Symptoms: confusion, insomnia Treatments Prior to Arrival: placed on mental health hold If Self Harm: other (Altered mental state) <Wan Condon - Last Filed: 04/05/19 13:53> - General Chief Complaint: Psychiatric Symptoms Stated Complaint: Mental Health Time Seen by Provider: 04/01/19 17:06 - History of Present Illness Initial Comments: This is a 58-year-old female here for evaluation of significant mental health acute psychosis. Patient's petition for psychiatric evaluation and treatment. Patient is a poor shrives secondary to acute psychosis (Wan Condon) - Related Data Home Medications Medication Instructions Recorded Confirmed Ascorbic Acid [Vitamin C] 500 mg PO DAILY 05/08/18 04/01/19 Cholecalciferol [Vitamin D3] 2,000 unit PO DAILY 05/08/18 04/01/19 Media-3 Fatty Acids/Fish Oil [Fish 1 cap PO DAILY 05/08/18 04/01/19 Oil 1,000 mg Softgel] PARoxetine HCL 40 mg PO DAILY 05/08/18 04/01/19 busPIRone HCl [Buspar] 5 mg PO BID 05/08/18 04/01/19 traZODone HCL 50 mg PO HS PRN 05/08/18 04/01/19 Atorvastatin [Lipitor] 20 mg PO DAILY 04/01/19 04/01/19 Gabapentin [Neurontin] 300 mg PO TID 04/01/19 04/01/19 Ibuprofen [Motrin] 800 mg PO TID PRN 04/01/19 04/01/19 Lisinopril [Zestril] 20 mg PO DAILY 04/01/19 04/01/19 Allergies Allergy/AdvReac Type Severity Reaction Status Date / Time No Known Allergies Allergy Verified 04/01/19 19:18 Review of Systems ROS Other: All systems not noted in ROS Statement are negative. <Rafat El - Last Filed: 04/01/19 22:04> ROS Other: All systems not noted in ROS Statement are negative. <TaurusWan Chio - Last Filed: 04/05/19 13:53> ROS Statement: Those systems with pertinent positive or pertinent negative responses have been documented in the HPI. Past Medical History Past Medical History: Hypertension, Osteoarthritis (OA) Additional Past Medical History / Comment(s): arthritis in neck, back and L ankle, bronchitis and pneumonia in the past History of Any Multi-Drug Resistant Organisms: None Reported Past Surgical History: Orthopedic Surgery Additional Past Surgical History / Comment(s): left ankle fracture with surgery- has metal plate/screws and pins, dental work Past Anesthesia/Blood Transfusion Reactions: No Reported Reaction Past Psychological History: Anxiety, Depression Smoking Status: Former smoker Past Alcohol Use History: None Reported Past Drug Use History: None Reported - Past Family History Mother Family Medical History: Rheumatoid Arthritis (RA) Additional Family Medical History / Comment(s): Mother had an arrythmia. She at the age of 69yrs which pt states was from kind of blockage-does not know type of blockage but states it was not in her heart. Father Family Medical History: Diabetes Mellitus, Hyperlipidemia, Hypertension, Myocardial Infarction (ID) Additional Family Medical History / Comment(s): Father at the age of 69yrs from heart disease and diabetes. He had several MIs with the first ID occuring at the age of 52 yrs. <TaurusWan B - Last Filed: 04/05/19 13:53> General Exam General appearance: alert, in no apparent distress Head exam: Present: atraumatic, normocephalic Eye exam: Present: normal appearance, PERRL ENT exam: Present: normal exam Neck exam: Present: normal inspection. Absent: tenderness, meningismus Respiratory exam: Present: normal lung sounds bilaterally. Absent: respiratory distress, wheezes Cardiovascular Exam: Present: regular rate, normal rhythm GI/Abdominal exam: Present: soft. Absent: distended, tenderness, guarding Neurological exam: Present: alert, oriented X3. Absent: motor sensory deficit Psychiatric exam: Present: depressed, agitated, anxious, suicidal ideation Skin exam: Present: warm, dry, intact. Absent: cyanosis, diaphoretic <Rafat El - Last Filed: 04/01/19 22:04> General appearance: alert, in no apparent distress Head exam: Present: atraumatic, normocephalic, normal inspection Eye exam: Present: normal appearance, PERRL, EOMI. Absent: scleral icterus, conjunctival injection, periorbital swelling ENT exam: Present: normal exam, mucous membranes moist Neck exam: Present: normal inspection. Absent: tenderness, meningismus, lymphadenopathy Respiratory exam: Present: normal lung sounds bilaterally. Absent: respiratory distress, wheezes, rales, rhonchi, stridor Cardiovascular Exam: Present: regular rate, normal rhythm, normal heart sounds. Absent: systolic murmur, diastolic murmur, rubs, gallop, clicks GI/Abdominal exam: Present: soft, normal bowel sounds. Absent: distended, tenderness, guarding, rebound, rigid Extremities exam: Present: normal inspection, full ROM, normal capillary refill. Absent: tenderness, pedal edema, joint swelling, calf tenderness Back exam: Present: normal inspection Neurological exam: Present: alert, oriented X3, CN II-XII intact Psychiatric exam: Present: normal affect, normal mood Skin exam: Present: warm, dry, intact, normal color. Absent: rash <Wan Condon - Last Filed: 04/05/19 13:53> Course <Rafat El - Last Filed: 04/01/19 22:04> Vital Signs 04/01/19 17:01 Temperature 98.9 F Pulse Rate 116 H Respiratory 16 Rate Blood Pressure 158/78 O2 Sat by Pulse 97 Oximetry - Reevaluation(s) Reevaluation #1: 04/01/19 22:06 patient does have a outburst, aggressive towards staff, requiring IV sedation (Rafat El) Medical Decision Making <Rafat El - Last Filed: 04/01/19 22:04> - Lab Data Result diagrams: 04/02/19 08:24 04/02/19 08:24 <Wan Condon - Last Filed: 04/05/19 13:53> - Medical Decision Making Patient's care was signed out at shift change awaiting EPS evaluation for depression, psychosis, agitation. Patient has history of bipolar depression with psychotic features. She is stating "God is coming to save her" she's hyper-alevism. She is acutely psychotic. She will be admitted for further psychiatric evaluation and treatment. (Rafat El) Disposition Is patient prescribed a controlled substance at d/c from ED?: No Decision to Admit Reason: Admit from EC Decision Date: 04/01/19 Decision Time: 22:07 <Rafat El - Last Filed: 04/01/19 22:04> <Wan Condon - Last Filed: 04/05/19 13:53> Clinical Impression: Delusions, Acute psychosis Disposition: ADMITTED IP TO THIS [facility] Condition: Stable
[2019-04-01] MEDS ORDERED: LORazepam 2 MG/ML INJ IM STA (22:03)
[2019-04-01] MEDS ORDERED: IBUPROFEN 800 MG TAB PO PRN (22:19)
[2019-04-01] MEDS ORDERED: MAGNESIUM HYDROXIDE 2,400 MG/10 ML CUP PO PRN (22:20)
[2019-04-01] MEDS ORDERED: ACETAMINOPHEN TAB 325 MG TAB PO PRN (22:20)
[2019-04-01] MEDS ORDERED: MAG HYDROX/AL HYDROX/SIMETH 30 ML CUP PO PRN (22:20)
[2019-04-01] MEDS ORDERED: ZIPRASIDONE 20 MG VIAL IM PRN (22:20)
[2019-04-01] MEDS ORDERED: LORazepam 2 MG/ML INJ IM PRN (22:22)
[2019-04-01] MEDS ORDERED: WATER FOR INJECTION, STERILE 10 ML IV ONE (22:25)
[2019-04-01] MEDS ORDERED: ZIPRASIDONE 20 MG VIAL IM ONE (22:25)
[2019-04-02 08:40] LABS: Basophils % (A) 1 %; Eosinophils # (A) 0.2 k/uL (0-0.7); Eosinophils % (A) 3 %; HCT 39.6 % (34.0-46.0); HGB 13.5 gm/dL (11.4-16.0); Lymphocytes # (A) 2.3 k/uL (1.0-4.8); Lymphocytes % (A) 29 %; MCH 31.2 pg (25.0-35.0); MCHC 34.2 g/dL (31.0-37.0); MCV 91.3 fL (80.0-100.0); Mean Platelet Volume 7.1; Monocytes # (A) 0.5 k/uL (0-1.0); Monocytes % (A) 6 %; Neutrophils # (A) 4.7 k/uL (1.3-7.7); Neutrophils % (A) 59 %; Platelet Count 352 k/uL (150-450); RBC 4.34 m/uL (3.80-5.40); RDW 12.9 % (11.5-15.5); WBC 7.9 k/uL (3.8-10.6)
[2019-04-02 08:52] LABS: ALT 16 U/L (4-34); AST 28 U/L (14-36); African American GFR (CKD) >90 (>60 ml/min/1.73 sqM); Albumin 4.5 g/dL (3.5-5.0); Alkaline Phosphatase 72 U/L (38-126); Anion Gap 10 mmol/L; Blood Urea Nitrogen 12 mg/dL (7-17); Calcium 9.9 mg/dL (8.4-10.2); Carbon Dioxide 31 mmol/L (22-30); Chloride 102 mmol/L (98-107); Cholesterol 174 mg/dL (<200); Glucose 116 mg/dL (74-99); HDL Cholesterol 49 mg/dL (40-60); LDL Cholesterol,Calculated 105 mg/dL (0-99); Non-African American GFR(CKD) >90 (>60 ml/min/1.73 sqM); Potassium 3.6 mmol/L (3.5-5.1); Sodium 143 mmol/L (137-145); Total Protein 7.7 g/dL (6.3-8.2); Triglycerides 99 mg/dL (<150)
[2019-04-02] MEDS: ASCORBIC ACID 500 MG TAB PO SCH (08:59)
[2019-04-02] MEDS: LISINOPRIL 20 MG TAB PO SCH (08:59)
[2019-04-02] MEDS: GABAPENTIN 300 MG CAP PO SCH ×3 (08:59→20:20)
[2019-04-02] MEDS: ARIPiprazole 10 MG TAB PO SCH (08:59)
[2019-04-02] MEDS: ATORVASTATIN 20 MG TAB PO SCH (08:59)
[2019-04-02] MEDS: CHOLECALCIFEROL 1,000 UNIT TAB PO SCH (08:59)
[2019-04-02] MEDS ORDERED: NON FORMULARY DRUG (Omega-3 Fatty Acids/Fish Oil [Fish Oil 1,000 Mg Softgel] 1 CAP) PO SCH (09:00)
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
[2019-04-02] MEDS: LORazepam 1 MG TAB PO PRN (13:56)
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
[2019-04-02 20:49] LABS: Hemoglobin A1C 5.4 % (4.0-6.0)
[2019-04-03] MEDS: GABAPENTIN 300 MG CAP PO SCH ×3 (08:41→20:57)
[2019-04-03] MEDS: ATORVASTATIN 20 MG TAB PO SCH (08:41)
[2019-04-03] MEDS: ASCORBIC ACID 500 MG TAB PO SCH (08:41)
[2019-04-03] MEDS: ARIPiprazole 10 MG TAB PO SCH (08:41)
[2019-04-03] MEDS: LISINOPRIL 20 MG TAB PO SCH (08:41)
[2019-04-03] MEDS: CHOLECALCIFEROL 1,000 UNIT TAB PO SCH (08:41)
--- NOTE | 2019-04-03 10:03 | P.PN ---
Progress Note - Text Interval history: The patient is found in group she follows me to an interview room. She indicates her mood is "1000% better". She states that she slept 9 hours last night staff reported she slept 4 hours. She states that she had an episode of vomiting and diarrhea yesterday after lunch but was able to eat dinner and breakfast this morning without problem. She found herself upset by 2 of her peers. She states that she hopes those individuals are vacating her home. She has no phone numbers to contact anybody. She has been attending groups. Mental status exam: The patient is alert she is an overweight female. As she seated in the chair she is braiding her hair on one side. Eye contact is appropriate speech is fluent spontaneous she is verbose. Her voice is hoarse today she states from talking too much yesterday Affect is overly bright and expansive. At times she is labile and becomes tearful. She indicates her mood is better. She continues to lack insight into some of her presenting symptoms. Thought process can be linear briefly with spontaneous speech she demonstrates less thought organization. Today she denies any auditory or visual hallucinations. She indicates she feels safe in the hospital. She is oriented to person place and date. She demonstrates no verbal or physical aggressiveness she demonstrates no involuntary repetitive movements. Plan: The patient will continue on the Abilify we will titrate this to 15 mg daily starting tomorrow. We'll monitor her for safety will encourage her participation in the milieu. Vital signs reviewed. She requires continued psychiatric hospitalization to stabilize her symptoms of tram and psychosis.
[2019-04-03] MEDS: MENTHOL (NICE) LOZENGE MUCOUS MEM PRN (15:01)
[2019-04-03] MEDS: LORazepam 1 MG TAB PO PRN (15:04)
--- NOTE | 2019-04-03 15:53 | PN ---
PROGRESS NOTE DATE OF SERVICE: 04/03/2019 This 58-year-old woman who was admitted with acute psychosis is complaining of sore throat and change in voice; dysphonia also. No chest pain. No palpitations. No fever. Occasional cough is reported. PHYSICAL EXAMINATION: Alert and oriented x3. Pulse 113, blood pressure 138/75, respirations 16, temperature 98.9, pulse ox 97% on room air. HEENT: Conjunctivae normal. NECK: No jugular venous distention. CARDIOVASCULAR SYSTEM: S1, S2 muffled. RESPIRATORY SYSTEM: Breath sounds diminished at the bases. No rhonchi. No crackles. ABDOMEN: Soft, non-tender. NERVOUS SYSTEM: No focal deficit. EXAMINATION OF THROAT: Minimal congestion present. LABS: CBC and BMP noted. Glucose 116. ALT is 105. ASSESSMENT: 1. Acute psychosis. 2. Sore throat with possibly acute pharyngitis. 3. Bipolar. 4. Hypertension. 5. Hyperlipidemia. 6. Deep venous thrombosis prophylaxis. 7. History of degenerative joint disease. 8. History of nicotine dependence. RECOMMENDATIONS AND DISCUSSION: I recommend to continue current medications, continue with symptomatic treatment. Recommend Mucinex b.i.d. and influenza nasopharyngeal testing also. Otherwise, continue to monitor. Recommend close followup with the primary physician in the outpatient setting. Thank you, Dr. Akhtar. SHIRIN / NADYA: [id number] /
[2019-04-03] MEDS: guaiFENesin 600 MG TABLET.ER PO SCH (20:57)
[2019-04-04] MEDS: ARIPiprazole 15 MG TAB PO SCH (09:23)
[2019-04-04] MEDS: CHOLECALCIFEROL 1,000 UNIT TAB PO SCH (09:23)
[2019-04-04] MEDS: GABAPENTIN 300 MG CAP PO SCH ×3 (09:23→21:22)
[2019-04-04] MEDS: ASCORBIC ACID 500 MG TAB PO SCH (09:23)
[2019-04-04] MEDS: guaiFENesin 600 MG TABLET.ER PO SCH ×2 (09:23→21:22)
[2019-04-04] MEDS: ATORVASTATIN 20 MG TAB PO SCH (09:23)
--- NOTE | 2019-04-04 09:23 | P.PN ---
Progress Note - Text interval history: The patient is found in the hallway she follows me to an interview room. She reports that her mood is improving. She indicates she slept 9 hours last night staff reported she slept for. She indicates her appetite stable. She has been attending groups. She states that she was able to reach her neighbor via phone and he is going to check on her residence to see if those people are still residing there. She has no questions or concerns regarding her psychotropic medication we have titrated the dose of the Abilify to 15 mg. She reports having no racing thoughts. She reports having no symptoms at this time. Mental status exam: The patient is alert she is dressed in layers grooming is improved hygiene is adequate. Eye contact is appropriate affect is overly bright and expansive. Her voice is hoarse as it was yesterday. She indicates her mood is good she is reporting no acute suicidal or homicidal ideation intent or plan. She is reporting no auditory or visual hallucinations at this time she is endorsing no specific delusions. Thought process was more linear today. Her insight into her symptoms was impaired as she described having a linear thought process yesterday but staff felt that she was quite labile during groups. She is oriented to person place and date. She demonstrates no verbal or physical aggressiveness she demonstrates no involuntary repetitive movements. Plan: The patient does appear to be slowly improving. I will confer with staff during treatment team meeting as yesterday she was quite disorganized in groups and labile. We will monitor her for safety and encourage participation in the milieu. Vital signs reviewed. At this time we are only prescribing the Abilify and we are holding off on restarting the 3 antidepressant medications that she was on previously. It appears that she does have a bipolar 1 disorder. She will be appropriate for discharge once her thought process is more organized and there is an absence of psychosis.
[2019-04-04] MEDS: LISINOPRIL 20 MG TAB PO SCH (09:24)
[2019-04-04] MEDS: MENTHOL (NICE) LOZENGE MUCOUS MEM PRN (09:24)
[2019-04-04] MEDS: LORazepam 1 MG TAB PO PRN ×2 (14:32→23:39)
[2019-04-05] MEDS: LISINOPRIL 20 MG TAB PO SCH (09:24)
[2019-04-05] MEDS: ASCORBIC ACID 500 MG TAB PO SCH (09:24)
[2019-04-05] MEDS: CHOLECALCIFEROL 1,000 UNIT TAB PO SCH (09:24)
[2019-04-05] MEDS: guaiFENesin 600 MG TABLET.ER PO SCH ×2 (09:24→21:45)
[2019-04-05] MEDS: ATORVASTATIN 20 MG TAB PO SCH (09:24)
[2019-04-05] MEDS: ARIPiprazole 15 MG TAB PO SCH (09:24)
[2019-04-05] MEDS: GABAPENTIN 300 MG CAP PO SCH ×3 (09:24→21:45)
--- NOTE | 2019-04-05 13:59 | P.PN ---
Progress Note - Text Progress Note Date: 04/05/19 Interval history: patient was seen after finishing her lunch and was directable and agreeable to speak to health underwriter in the office. patient spoke about the circumstances behind coming to the hospital as she was feeling "overwhelmed with everybody" and also that she couldn't control her emotions. She described leading in people to stay at her house and claims that they're causing many problems. Patient continues to demonstrate some lability in her mood however it appears to be gradually improving. Patient stated that her sleep was poor last night however has been gradually getting better. She also states that she has been taking her medications and is denying any side effects at this time. I spoke with patient about the possibility of starting Abilify Maintenna long- acting injection to help her with compliance and patient was agreeable to have this done over the weekend. She claims that her appetite has been gradually improving. At this time patient denies any suicidal or homicidal ideations intent or plan. Denies any Auditory or visual hallucinations. Mental status exam: General Appearance: Patient appears to be stated age is alert, an directable. Fair hygiene and grooming. Behavior: No agitated behavior. labile Speech: Patient's speech is fluent and nonpressured. Mood/Affect: Mood is improving, affect is congruent and labile. Suicidality/Homicidality: Patient denies having any suicidal or homicidal ideation intent or plan. Perceptions: Patient denies any auditory or visual hallucinations. Though content/process: There is no evidence of any delusional thought content and thought process is linear and goal-directed. patient did have some disorganized thought process. Memory and concentration: AOX3, grossly intact for the purposes of this session Judgment and insight: improving mildly. Assessment/Plan: Continue with current diagnosis. Patient continues to meet criteria for inpatient psychiatric admission for symptom stabilization and safety.[ Patient will be maintained on current psychotropic medication regimen. I discussed with patient about the option for possible Abilify Maintenna long- acting injection dose to be given over the weekend and patient is agreeable. If patient is clinically stable over the weekend then she may be able to receive A bilify Maintenna 400 mg dose prior to d/c. we'll continue holding off on antidepressants at this time. Monitor for medication compliance and for any psychotropic medication side effects. Will continue to monitor ongoing response to treatment.
[2019-04-05] MEDS: LORazepam 1 MG TAB PO PRN (16:56)
[2019-04-06] MEDS: LORazepam 1 MG TAB PO PRN ×2 (00:51→23:41)
[2019-04-06 08:33] VITALS: BMI 32.3
[2019-04-06] MEDS: ASCORBIC ACID 500 MG TAB PO SCH (08:51)
[2019-04-06] MEDS: ARIPiprazole 15 MG TAB PO SCH (08:51)
[2019-04-06] MEDS: LISINOPRIL 20 MG TAB PO SCH (08:52)
[2019-04-06] MEDS: guaiFENesin 600 MG TABLET.ER PO SCH ×2 (08:52→20:49)
[2019-04-06] MEDS: GABAPENTIN 300 MG CAP PO SCH ×3 (08:52→20:49)
[2019-04-06] MEDS: ATORVASTATIN 20 MG TAB PO SCH (08:52)
[2019-04-06] MEDS: CHOLECALCIFEROL 1,000 UNIT TAB PO SCH (08:52)
--- NOTE | 2019-04-06 12:29 | P.PN ---
Progress Note - Text Progress Note Date: 04/06/19 interval history: Patient is seen in cross coverage today. She reports she's feeling much better. She has been placed on Abilify which she does not verbalize any side effects with. She was taken off several of her other medications. She states when she came in she was in a manic state. Her mood is feeling stable now. She is not feeling any current irritability. She was about to play waldo with some peers. Mental status exam: She is alert and cooperative with the interview. Her speech is fluent, not rapid or pressured. Thought processes are organized. Her mood she describes is stable. She denies any irritability. She does not verbalize any thoughts of harm to self or others. No evidence of any active psychosis. She does not present with any agitation. Plan: Patient be maintained on current psychotropic medication regimen. Continue to monitor for any medication side effects and monitor her ongoing response to treatment.
[2019-04-07] MEDS: ARIPiprazole 15 MG TAB PO SCH (09:27)
[2019-04-07] MEDS: CHOLECALCIFEROL 1,000 UNIT TAB PO SCH (09:27)
[2019-04-07] MEDS: ATORVASTATIN 20 MG TAB PO SCH (09:27)
[2019-04-07] MEDS: GABAPENTIN 300 MG CAP PO SCH ×3 (09:27→20:03)
[2019-04-07] MEDS: ASCORBIC ACID 500 MG TAB PO SCH (09:27)
[2019-04-07] MEDS: guaiFENesin 600 MG TABLET.ER PO SCH ×2 (09:28→20:03)
[2019-04-07] MEDS: LISINOPRIL 20 MG TAB PO SCH (09:28)
[2019-04-07] MEDS: LORazepam 1 MG TAB PO PRN ×2 (09:28→20:04)
--- NOTE | 2019-04-07 16:00 | P.PN ---
Progress Note - Text Progress Note Date: 04/07/19 interval history: Patient seen in cross coverage today. She was taking a nap when she was called for the interview. She says she didn't sleep that well last night because of some noise on the unit. Appetite and eating is good. She feels like she is doing well on the Abilify. She does feel like she is ready for discharge. Mental status exam she is alert and cooperative with the interview. Her speech is fluent, not rapid or pressured. Thought processes organized. Her mood she describes as "good." She denies any thoughts of harm to self or others. She does not verbalize any hallucinations and does not voice any delusional thoughts. There is no agitation present. Plan: Patient will be maintained on current psychotropic medication regimen. She will be monitored regarding any medication side effects and her ongoing response to treatment.
[2019-04-08 07:13] VITALS: RESP 16
[2019-04-08] MEDS: ARIPiprazole 15 MG TAB PO SCH (09:35)
[2019-04-08] MEDS: LISINOPRIL 20 MG TAB PO SCH (09:35)
[2019-04-08] MEDS: ATORVASTATIN 20 MG TAB PO SCH (09:35)
[2019-04-08] MEDS: guaiFENesin 600 MG TABLET.ER PO SCH ×2 (09:35→21:02)
[2019-04-08] MEDS: ASCORBIC ACID 500 MG TAB PO SCH (09:35)
[2019-04-08] MEDS: CHOLECALCIFEROL 1,000 UNIT TAB PO SCH (09:35)
[2019-04-08] MEDS: GABAPENTIN 300 MG CAP PO SCH ×3 (09:35→21:02)
--- NOTE | 2019-04-08 13:30 | P.PN ---
Progress Note - Text Progress Note Date: 04/08/19 Chief complaint: "Feeling very good and emotionally stable " Subjective: The patient has been seen today as follow-up, chart reviewed, case discussed with the treatment team. Patient slept about 6 hours last night. Patient has been going to groups and other unit activities. Patient reports fair appetite. Patient reports feeling stable emotionally and he denies feeling depressed, hopeless, or suicidal. Patient denies any mood swings, irritability, or agitation. Patient minimizes anxiety and he denies panic attacks.The patient is compliant with her medications and denies any adverse reactions. The patient denies any manic symptoms including sustained period of time with elevated or irritable mood, impulsive or irrational behavior, inflated self- esteem, or absence need to sleep due to increases goal-directed activities. The patient denies any auditory or visual hallucinations. Also the patient denies any paranoid ideation. Review of other systems: Patient denies any physical symptoms besides what has been mentioned above. No breathing problems, no chest pain reported today. Objective: Vitals has been reviewed. Mental status examination; Appearance: The patient appears stated age, adequately groomed and dressed, no specific features. Gait/posture: Normal gait, Normal arm swinging: No abnormal movements. Attitude and behavior: engaged, cooperative, eye contact. Motor activity: Normal psychomotor activity Speech: Normal rate, tone. Mood: Anxious Affect: Constricted Thought form: goal-directed, linear, coherent. Thought content: Non-delusional, denies suicidal thoughts, denies homicidal thoughts, denies intentions or plans. Perception: Denies any auditory or visual hallucinations Attention: No impairment. Patient was able to repeat serial 5. Orientation: Patient patient was fully oriented to time place person and situation. Insight: Patient has fair insight about his psychiatric disorder. Judgment: Patient has fair judgment about his psychiatric treatment. Assessment: Bipolar 1 disorder most recent manic with psychosis cannabis use disorder moderate Rule out Generalized anxiety disorder Rule out borderline personality disorder Plan: Continue inpatient level of care due to further stabilization on medications and for discharge planning Continue treatment of bipolar disorder provide psychiatric education regarding her diagnosis Precautions: Continue 15 minutes check for safety. Consider medical consultation if any acute medical issues arise. Provide the patient individual, group therapy, substance use disorder counseling to give better insight and learn coping skills. Medications: Continue Abilify 15 mg daily for bipolar disorder. Discharge patient to OUTPATIENT services upon a stabilization Expected LOS: 1-2 days
[2019-04-08] MEDS: LORazepam 1 MG TAB PO PRN ×2 (15:56→22:19)
[2019-04-09 07:17] VITALS: TEMP 97.9
[2019-04-09] MEDS: guaiFENesin 600 MG TABLET.ER PO SCH (08:43)
[2019-04-09] MEDS: ARIPiprazole 15 MG TAB PO SCH (08:43)
[2019-04-09] MEDS: LISINOPRIL 20 MG TAB PO SCH (08:43)
[2019-04-09] MEDS: CHOLECALCIFEROL 1,000 UNIT TAB PO SCH (08:44)
[2019-04-09] MEDS: GABAPENTIN 300 MG CAP PO SCH ×2 (08:44→15:10)
[2019-04-09] MEDS: ASCORBIC ACID 500 MG TAB PO SCH (08:44)
[2019-04-09] MEDS: ATORVASTATIN 20 MG TAB PO SCH (08:44)
[2019-04-09] MEDS: LORazepam 1 MG TAB PO PRN (08:45)
[2019-04-09 09:44] VITALS: BP 142/63; PULSE 107
--- NOTE | 2019-04-09 14:25 | P.DS ---
Providers Date of admission: 04/01/19 21:32 Expected date of discharge: 04/09/19 Attending physician: Jack Akhtar Consults: 04/01/19 22:20 Consult Physician Routine Consulting Provider: Yuni Gibson Consult Reason/Comments: H&P and medical Do you want consulting provider notified?: Yes Primary care physician: [facility] Course: Brief HPI: As per the HPI from initial psychiatric evaluation during this hospital stay: "the patient was admitted on a petition completed by a police reserves commander stating "while speaking came was making no sense, speaking tongs, stating God was coming to save her. She said she hadn't slept in 6 days as she was on a mission for the divined number of 3. Nery continued to show things about God and was speaking in gibberish that couldn't be understood. Roommate said Nery took a dog leash and ran with that stating she was going to kill herself and God told her to do it." The patient states that it is true she hadn't slept for 6 days and she hadn't eaten for several days as well. She reports being overwhelmed by the behavior of her roommates. She states that she has 3 homeless adults residing at her home since the end of January. She states 2 of them smoke cigarettes constantly one is constantly drinking liquor and sometimes they are verbally abusive. She states there are several dogs living in the home. She finds hers elf overwhelmed with tolerating these individuals cleaning and she feels she is getting physically ill from the smoke. She states she does not recall making any of the statements listed on the petition. She states that she has been having visions and feels as though family members have been watching her and speaking to her. She endorses racing thoughts. She states her mood is good today. She feels safe in the hospital. She reports no hopelessness thinking or any suicidal ideation today but states that she had those thoughts last night. She does describe some disorganized delusional thought. Process is disorganized at times. She is reporting no current anxiety symptoms. She reports having no guns at home. She was able to sleep last night she did eat breakfast this morning. She has been attempting to attend groups." Psychiatric: The patient was initiated on psychotropic medication Abilify and discontinued prior to admission psychiatric medications including Paxil, Trazodone and Buspar because they were not helping with depression/mood symptoms. Patient reports failed trial of Geodon and was discontinued priro to this hospitalization. Patient was prescribed Ativan prior to hospitalization and during hospital stay was receiving Ativan 1 mg PRN with most of days was taking it twice daily. At time of discharge the patient was given one week of Ativan to avoid possibility of withdrawal symptoms and was educated to continue follow up with her outpatient psychiatrist/provider and consider gradually tapering off Ativan. The medication doses has been adjusted to optimize the stability of the psychiatric symptoms, and to avoid side effects. Patient tolerated the above medication/s very well, without side effects. The patient was admitted for a safe and supportive environment. A psychiatric, medical, and psychosocial evaluations were done on admission. The patient's hospital stay is unremarkable. Patient did not exhibit any aggression towards herself or others during this hospitalization, and there was no requirements for emergency medications or restraints. The patient attended groups to obtain coping skills and process stress. Patient was compliant with her medications. Patient got along with her peers and with staff. The objective signs of depression and mood instability have been improved. She denies any suicidal ideation, not made any hopelessness/helplessness statements for more than 3 days prior to discharge. Maximum hospitalization benefit was reached and subsequently discharge was planned, and patient is appropriate to continue treatment on an outpatient basis. On the day of discharge the patient was able to create an appropriate safety plan and denies any side effect of medications. Discussion was held about need to stop use of marijuana , including its effects on mood, interaction with psychiatric medications, and its role in events leading up to admission. Patient is in the contemplative stage of a change. Medical: Patient continued the medical management of her medical conditions. Non- psychiatric medications including Lipitor and Lisinopril was maintained to manage hyperlipidemia and hypertension respectively. Assessment: Assessment at the day of discharge: The patient was seen at the day of discharge. Patient denies any sleep or appetite disturbances, denies feeling hopeless, worthless or helpless. Also, patient denies any other depressive or manic symptoms. Patient denies any psychotic symptoms. Patient denies suicidal or homicidal thoughts, intention or plans. Nurses and therapist reported patient is psychiatrically stable, and agreed to discharge plan. Mental status examination; Appearance: The patient appears stated age, adequately groomed and dressed, no specific features. Gait/posture: Normal gait, Normal arm swinging: No abnormal movements. Attitude and behavior: engaged, cooperative, eye contact. Motor activity: Normal psychomotor activity Speech: Normal rate, tone. Mood: Anxious Affect: Constricted Thought form: goal-directed, linear, coherent. Thought content: Non-delusional, denies suicidal thoughts, denies homicidal thoughts, denies intentions or plans. Perception: Denies any auditory or visual hallucinations Attention: No impairment. Patient was able to repeat serial 5. Orientation: Patient patient was fully oriented to time place person and situation. Insight: Patient has fair insight about his psychiatric disorder. Judgment: Patient has fair judgment about his psychiatric treatment. Diagnosis: Bipolar 1 disorder most recent manic with psychosis cannabis use disorder moderate Rule out Generalized anxiety disorder Rule out borderline personality disorder Health Concerns: Activity: As tolerated Diet: Regular Special Instructions: Labs to be completed after discharge: As clinically indicated by her outpatient psychiatrist and PCP. Pt is currently on Abilify and she was educated about risk of metabolic syndrome and need to continue monitoring weight, and continue monitoring lipid panel and Hb A1C. Discharge checklist for suicide and violence to determine stability: Safety plan was discussed with the patient. Patient denies any current suicidal/ homicidal or violent ideation/plan/ intent. Patient has ability to address stressors/emotions. Patient understands and is comfortable with discharge plan. Outpatient appointments is near [facility] Emergency number (911, crisis number) provided to the patient. Avoid the use of street drugs and alcohol. Take all medications as prescribed. When you are in need of refills please contact your medical provider and/or outpatient psychiatrist to have this done. Please go to scheduled outpatient appointment for aftercare. If symptoms return or become worse call the crisis line at and/or go to the nearest emergency room for an evaluation. Pertinent Studies: Laboratory Tests Range/Units 04/02/19 04/02/19 04/02/19 08:24 08:24 08:36 WBC (3.8-10.6) k/uL 7.9 RBC (3.80-5.40) m/uL 4.34 Hgb (11.4-16.0) gm/dL 13.5 Hct (34.0-46.0) % 39.6 MCV (80.0-100.0) fL 91.3 MCH (25.0-35.0) pg 31.2 MCHC (31.0-37.0) g/dL 34.2 RDW (11.5-15.5) % 12.9 Plt Count (150-450) k/uL 352 Neutrophils % % 59 Lymphocytes % % 29 Monocytes % % 6 Eosinophils % % 3 Basophils % % 1 Neutrophils # (1.3-7.7) k/uL 4.7 Lymphocytes # (1.0-4.8) k/uL 2.3 Monocytes # (0-1.0) k/uL 0.5 Eosinophils # (0-0.7) k/uL 0.2 Basophils # (0-0.2) k/uL 0.0 Sodium (137-145) mmol/L 143 Potassium (3.5-5.1) mmol/L 3.6 Chloride (98-107) mmol/L 102 Carbon Dioxide (22-30) mmol/L 31 H Anion Gap mmol/L 10 BUN (7-17) mg/dL 12 Creatinine (0.52-1.04) mg/dL 0.63 Est GFR (CKD-EPI)AfAm (>60 ml/min/1.73 sqM) >90 Est GFR (CKD-EPI)NonAf (>60 ml/min/1.73 sqM) >90 Glucose (74-99) mg/dL [address] Glu mg/dL 108 Hemoglobin A1c (4.0-6.0) % 5.4 Calcium (8.4-10.2) mg/dL 9.9 Total Bilirubin (0.2-1.3) mg/dL 1.0 AST (14-36) U/L 28 ALT (4-34) U/L 16 Alkaline Phosphatase (38-126) U/L 72 Total Protein (6.3-8.2) g/dL 7.7 Albumin (3.5-5.0) g/dL 4.5 Triglycerides (<150) mg/dL 99 Cholesterol (<200) mg/dL 174 LDL Cholesterol, Calc (0-99) mg/dL 105 H HDL Cholesterol (40-60) mg/dL 49 TSH (0.465-4.680) mIU/L 0.815 Influenza Type A RNA (Not Detectd) Influenza Type B (PCR) (Not Detectd) Range/Units 04/03/19 16:47 WBC (3.8-10.6) k/uL RBC (3.80-5.40) m/uL Hgb (11.4-16.0) gm/dL Hct (34.0-46.0) % MCV (80.0-100.0) fL MCH (25.0-35.0) pg MCHC (31.0-37.0) g/dL RDW (11.5-15.5) % Plt Count (150-450) k/uL Neutrophils % % Lymphocytes % % Monocytes % % Eosinophils % % Basophils % % Neutrophils # (1.3-7.7) k/uL Lymphocytes # (1.0-4.8) k/uL Monocytes # (0-1.0) k/uL Eosinophils # (0-0.7) k/uL Basophils # (0-0.2) k/uL Sodium (137-145) mmol/L Potassium (3.5-5.1) mmol/L Chloride (98-107) mmol/L Carbon Dioxide (22-30) mmol/L Anion Gap mmol/L BUN (7-17) mg/dL Creatinine (0.52-1.04) mg/dL Est GFR (CKD-EPI)AfAm (>60 ml/min/1.73 sqM) Est GFR (CKD-EPI)NonAf (>60 ml/min/1.73 sqM) Glucose (74-99) mg/dL Estimated Ave Glu mg/dL Hemoglobin A1c (4.0-6.0) % Calcium (8.4-10.2) mg/dL Total Bilirubin (0.2-1.3) mg/dL AST (14-36) U/L ALT (4-34) U/L Alkaline Phosphatase (38-126) U/L Total Protein (6.3-8.2) g/dL Albumin (3.5-5.0) g/dL Triglycerides (<150) mg/dL Cholesterol (<200) mg/dL LDL Cholesterol, Calc (0-99) mg/dL HDL Cholesterol (40-60) mg/dL TSH (0.465-4.680) mIU/L Influenza Type A RNA (Not Detectd) Not Detected Influenza Type B (PCR) (Not Detectd) Not Detected Procedures: Plan: Patient will continue follow-up at-. As per discharge plan Continue the following medications: As per discharge plan Patient Condition at Discharge: Stable Patient will be discharge to home Discharge Medication List Ascorbic Acid [Vitamin C] 500 mg PO DAILY 05/08/18 [History] Cholecalciferol [Vitamin D3 (25 Mcg = 1000 Iu)] 2,000 unit PO DAILY 05/08/18 [History] [place]-3 Fatty Acids/Fish Oil [Fish Oil 1,000 mg Softgel] 1 cap PO DAILY 05/08/18 [History] Atorvastatin [Lipitor] 20 mg PO DAILY 04/01/19 [History] Lisinopril [Zestril] 20 mg PO DAILY 04/01/19 [History] ARIPiprazole [Abilify] 15 mg PO DAILY 30 Days tab 04/09/19 [Rx] Gabapentin [Neurontin] 300 mg PO TID #90 cap 04/09/19 [Rx] LORazepam [Ativan] 1 mg PO TID PRN #21 tab 04/09/19 [Rx] Patient Condition at Discharge: Stable Plan - Discharge Summary New Discharge Prescriptions: New ARIPiprazole [Abilify] 15 mg PO DAILY 30 Days tab LORazepam [Ativan] 1 mg PO TID PRN #21 tab PRN Reason: Anxiety, Agitation Continue [place]-3 Fatty Acids/Fish Oil [Fish Oil 1,000 mg Softgel] 1 cap PO DAILY Ascorbic Acid [Vitamin C] 500 mg PO DAILY Cholecalciferol [Vitamin D3 (25 Mcg = 1000 Iu)] 2,000 unit PO DAILY Atorvastatin [Lipitor] 20 mg PO DAILY Lisinopril [Zestril] 20 mg PO DAILY Gabapentin [Neurontin] 300 mg PO TID #90 cap Discontinued traZODone HCL 50 mg PO HS PRN PRN Reason: Insomnia busPIRone HCl [Buspar] 5 mg PO BID PARoxetine HCL 40 mg PO DAILY Ibuprofen [Motrin] 800 mg PO TID PRN PRN Reason: Pain Discharge Medication List Ascorbic Acid [Vitamin C] 500 mg PO DAILY 05/08/18 [History] Cholecalciferol [Vitamin D3 (25 Mcg = 1000 Iu)] 2,000 unit PO DAILY 05/08/18 [History] [place]-3 Fatty Acids/Fish Oil [Fish Oil 1,000 mg Softgel] 1 cap PO DAILY 05/08/18 [History] Atorvastatin [Lipitor] 20 mg PO DAILY 04/01/19 [History] Lisinopril [Zestril] 20 mg PO DAILY 04/01/19 [History] ARIPiprazole [Abilify] 15 mg PO DAILY 30 Days tab 04/09/19 [Rx] Gabapentin [Neurontin] 300 mg PO TID #90 cap 04/09/19 [Rx] LORazepam [Ativan] 1 mg PO TID PRN #21 tab 04/09/19 [Rx] Follow up Appointment(s)/Referral(s): [facility] [Outside] - 04/12/19 4:00 pm (Valerie Hussein 16:00 on 04/12 Vicki Rosa 16:30 on 04/15) Heike De La Cruz MD [Primary Care Provider] - 1-2 days Patient Instructions/Handouts: Bipolar Disorder (DC), Suicide Prevention (DC) Discharge Disposition: HOME SELF-CARE
== END 2019-04-09 17:32 | disposition home or self-care (01) | DRG 885 ==
LOC: EC 16:53 → 3MHU 21:32
PROVIDERS: ADMIT Psychiatry & Neurology Psychiatry; ATTEND Psychiatry & Neurology Psychiatry
DX: F30.2 Manic episode, severe with psychotic symptoms (principal); E78.5 Hyperlipidemia, unspecified; F17.210 Nicotine dependence, cigarettes, uncomplicated; F41.1 Generalized anxiety disorder; F60.3 Borderline personality disorder; G47.00 Insomnia, unspecified; I10 Essential (primary) hypertension; Z59.0 Homelessness; Z82.49 Family history of ischemic heart disease and other diseases of the circulatory system; Z87.01 Personal history of pneumonia (recurrent); Z83.3 Family history of diabetes mellitus
CPT/HCPCS: 80053; 80061; 82075; 83036; 84443; 85025; 87502; 96372; 99285

== ENCOUNTER 2019-05-12 10:41 | Inpatient (IN) | payer MEDICARE, MEDICAID ==
--- NOTE | 2019-05-12 10:54 | ED ---
Psych HPI - General Chief Complaint: Psychiatric Symptoms Stated Complaint: Mental Health Time Seen by Provider: 05/12/19 10:46 Source: patient, RN notes reviewed Mode of arrival: ambulatory Limitations: no limitations - History of Present Illness Initial Comments: This a 59-year-old female presented emergency Department chief complaint of depression, suicidal ideation. Patient states that she has been depressed over the last several weeks she did have some improvement after her last hospitalization in March. Patient states that she is scheduled for another shot of Abilify next week. She does state last week she's had no motivation to get out of bed states that she is this breath and started feeling suicidal today. Her friends convinced her to present emergency department. She stated that they were called EMS though she convinced him not to because she gets violent and she is confronted by medical personnel. - Related Data Home Medications Medication Instructions Recorded Confirmed Ascorbic Acid [Vitamin C] 500 mg PO DAILY 05/08/18 05/12/19 Cholecalciferol [Vitamin D3 (25 2,000 unit PO DAILY 05/08/18 05/12/19 Mcg = 1000 Iu)] [place]-3 Fatty Acids/Fish Oil [Fish 1 cap PO DAILY 05/08/18 05/12/19 Oil 1,000 mg Softgel] Atorvastatin [Lipitor] 20 mg PO DAILY 04/01/19 05/12/19 ARIPiprazole IM [Abilify Maintena] 400 mg IM Q28D 05/12/19 05/12/19 Lisinopril-Hctz 20-25 mg 1 tab PO DAILY 05/12/19 05/12/19 [Zestoretic 20-25] PARoxetine HCL [Paxil] 40 mg PO DAILY 05/12/19 05/12/19 traZODone HCL 50 mg PO HS 05/12/19 05/12/19 Previous Rx's Medication Instructions Recorded ARIPiprazole [Abilify] 15 mg PO DAILY 30 Days tab 04/09/19 Gabapentin [Neurontin] 300 mg PO TID #90 cap 04/09/19 LORazepam [Ativan] 1 mg PO TID PRN #21 tab 04/09/19 Allergies Allergy/AdvReac Type Severity Reaction Status Date / Time oxcarbazepine Allergy Unknown Verified 05/12/19 11:49 [From Trileptal] Review of Systems ROS Statement: Those systems with pertinent positive or pertinent negative responses have been documented in the HPI. ROS Other: All systems not noted in ROS Statement are negative. Past Medical History Past Medical History: Hypertension, Osteoarthritis (OA) Additional Past Medical History / Comment(s): arthritis in neck, back and L ankle, bronchitis and pneumonia in the past History of Any Multi-Drug Resistant Organisms: None Reported Past Surgical History: Orthopedic Surgery Additional Past Surgical History / Comment(s): left ankle fracture with surgery- has metal plate/screws and pins, dental work Past Anesthesia/Blood Transfusion Reactions: No Reported Reaction Past Psychological History: Anxiety, Depression Smoking Status: Former smoker Past Alcohol Use History: Occasional Past Drug Use History: None Reported - Past Family History Mother Family Medical History: Rheumatoid Arthritis (RA) Additional Family Medical History / Comment(s): Mother had an arrythmia. She at the age of 69yrs which pt states was from kind of blockage-does not know type of blockage but states it was not in her heart. Father Family Medical History: Diabetes Mellitus, Hyperlipidemia, Hypertension, Myocardial Infarction (OK) Additional Family Medical History / Comment(s): Father at the age of 69yrs from heart disease and diabetes. He had several MIs with the first OK occuring at the age of 52 yrs. General Exam Limitations: no limitations General appearance: alert, in no apparent distress Head exam: Present: atraumatic, normocephalic, normal inspection Eye exam: Present: normal appearance, PERRL, EOMI. Absent: scleral icterus, conjunctival injection, periorbital swelling ENT exam: Present: normal exam, normal oropharynx, mucous membranes moist Neck exam: Present: normal inspection, full ROM. Absent: tenderness, meningismus, lymphadenopathy Respiratory exam: Present: normal lung sounds bilaterally. Absent: respiratory distress, wheezes, rales, rhonchi, stridor Cardiovascular Exam: Present: regular rate, normal rhythm, normal heart sounds. Absent: systolic murmur, diastolic murmur, rubs, gallop, clicks GI/Abdominal exam: Present: soft, normal bowel sounds. Absent: distended, tenderness, guarding, rebound, rigid Neurological exam: Present: alert, oriented X3 Psychiatric exam: Present: depressed, flat affect Skin exam: Present: warm, dry, intact, normal color. Absent: rash Course Vital Signs 05/12/19 10:42 Temperature 98.4 F Pulse Rate 97 Respiratory 18 Rate Blood Pressure 137/71 O2 Sat by Pulse 98 Oximetry Medical Decision Making - Medical Decision Making Patient was evaluated by EPS case discussed with psychiatrist recommends inpatient treatment. - Lab Data Lab Results 05/12/19 Range/Units 11:08 Urine Opiates Screen Not Detected (NotDetected) Ur Oxycodone Screen Not Detected (NotDetected) Urine Methadone Screen Not Detected (NotDetected) Ur Propoxyphene Screen Not Detected (NotDetected) Ur Barbiturates Screen Not Detected (NotDetected) U Tricyclic Antidepress Not Detected (NotDetected) Ur Phencyclidine Scrn Not Detected (NotDetected) Ur Amphetamines Screen Not Detected (NotDetected) U Methamphetamines Scrn Not Detected (NotDetected) U Benzodiazepines Scrn Not Detected (NotDetected) Urine Cocaine Screen Not Detected (NotDetected) U Marijuana (THC) Screen Not Detected (NotDetected) Disposition Clinical Impression: Depression, Suicidal ideation Disposition: TRANSFER TO PSYCH HOSP/UNIT Condition: Stable Referrals: Heike De La Cruz MD [Primary Care Provider] - 1-2 days
[2019-05-12 11:38] LABS: Amphetamine Screen,Urine Not Detected (NotDetected); Barbiturate Screen,Urine Not Detected (NotDetected); Benzodiazepines Screen,Urine Not Detected (NotDetected); Cocaine Screen,Urine Not Detected (NotDetected); Methadone Screen, Urine Not Detected (NotDetected); Opiate Screen,Urine Not Detected (NotDetected); Oxycodone Screen, Urine Not Detected (NotDetected); Phencyclidine Screen,Urine Not Detected (NotDetected); Tricyclic Antidepressant,Urine Not Detected (NotDetected); Urn Cannabinoid Scrn Not Detected (NotDetected)
[2019-05-12] MEDS ORDERED: MAG HYDROX/AL HYDROX/SIMETH 30 ML CUP PO PRN (14:54)
[2019-05-12] MEDS ORDERED: ACETAMINOPHEN TAB 325 MG TAB PO PRN (14:54)
[2019-05-12] MEDS ORDERED: MAGNESIUM HYDROXIDE 2,400 MG/10 ML CUP PO PRN (14:54)
[2019-05-12] MEDS ORDERED: ARIPiprazole IM SYRINGE 400 MG (NO CHARGE) IM SCH (16:00)
[2019-05-13 08:18] LABS: Basophils # (A) 0.1 k/uL (0-0.2); Basophils % (A) 1 %; Eosinophils # (A) 0.1 k/uL (0-0.7); Eosinophils % (A) 2 %; HCT 43.5 % (34.0-46.0); HGB 14.1 gm/dL (11.4-16.0); Lymphocytes % (A) 36 %; MCH 29.6 pg (25.0-35.0); MCHC 32.5 g/dL (31.0-37.0); MCV 91.1 fL (80.0-100.0); Mean Platelet Volume 7.2; Monocytes # (A) 0.5 k/uL (0-1.0); Monocytes % (A) 7 %; Neutrophils # (A) 4.3 k/uL (1.3-7.7); Neutrophils % (A) 53 %; Platelet Count 394 k/uL (150-450); RBC 4.78 m/uL (3.80-5.40); WBC 8.2 k/uL (3.8-10.6)
[2019-05-13 08:38] LABS: ALT 16 U/L (4-34); AST 23 U/L (14-36); African American GFR (CKD) >90 (>60 ml/min/1.73 sqM); Albumin 4.7 g/dL (3.5-5.0); Alkaline Phosphatase 78 U/L (38-126); Anion Gap 12 mmol/L; Blood Urea Nitrogen 17 mg/dL (7-17); Calcium 10.1 mg/dL (8.4-10.2); Carbon Dioxide 30 mmol/L (22-30); Chloride 96 mmol/L (98-107); Cholesterol 199 mg/dL (<200); Glucose 138 mg/dL (74-99); HDL Cholesterol 49 mg/dL (40-60); LDL Cholesterol,Calculated 122 mg/dL (0-99); Non-African American GFR(CKD) >90 (>60 ml/min/1.73 sqM); Potassium 3.9 mmol/L (3.5-5.1); Sodium 138 mmol/L (137-145); Total Protein 8.1 g/dL (6.3-8.2); Triglycerides 140 mg/dL (<150)
[2019-05-13] MEDS: CHOLECALCIFEROL 1,000 UNIT TAB PO SCH (10:11)
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
--- NOTE | 2019-05-13 14:36 | P.CONS ---
History of Present Illness - History of Present Illness This is a pleasant 59 years old female with past medical history of hyperten gloria, osteoarthritis, anxiety and depression. Presents with signs symptoms of depression and anxiety, and she was admitted to the mental health unit. Medical consult was requested for medical management. Patient denies specific signs symptoms. She denies chest pain or dyspnea. No abdominal pain. No change in urine or bowel habits. No fever Patient is a former smoker, she uses marijuana at times. Patient states that she takes lisinopril and Lipitor at home but she cannot remember the dose Discussed with staff to get neuritis from the pharmacy Review of Systems CONSTITUTIONAL: No fever, no malaise, no fatigue. HEENT: No recent visual problems or hearing problems. Denied any sore throat. CARDIOVASCULAR: No orthopnea, PND, no palpitations, no syncope. PULMONARY: No shortness of breath, no cough, no hemoptysis. GASTROINTESTINAL: No diarrhea, no nausea, no vomiting, no abdominal pain. Normoactive bowel sounds. NEUROLOGICAL: No headaches, no weakness, no numbness. HEMATOLOGICAL: Denies any bleeding or petechiae. GENITOURINARY: Denies any burning micturition, frequency, or urgency. MUSCULOSKELETAL/RHEUMATOLOGICAL: Denies any joint pain, swelling, or any muscle pain. ENDOCRINE: Denies any polyuria or polydipsia. Past Medical History Past Medical History: Hypertension, Osteoarthritis (OA) Additional Past Medical History / Comment(s): arthritis in neck, back and L ankle, bronchitis and pneumonia in the past History of Any Multi-Drug Resistant Organisms: None Reported Past Surgical History: Orthopedic Surgery Additional Past Surgical History / Comment(s): left ankle fracture with surgery- has metal plate/screws and pins, dental work Past Anesthesia/Blood Transfusion Reactions: No Reported Reaction Past Psychological History: Anxiety, Depression Additional Psychological History / Comment(s): Pt lives alone in a home. She is disabled. She drives. Pt states she has depression and last week her depression was increased but better this week. She had an insurance change in September of this year which she states has caused her to stop taking her antihypertensive meds and psych meds and she no longer sees anyone for her mental health. 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 Smoking Status: Former smoker Past Alcohol Use History: Occasional Additional Past Alcohol Use History / Comment(s): Pt started smoking in 1973 and quit in 1997. Past Drug Use History: None Reported Additional Drug Use History / Comment(s): Pt denies ever using marijuana or any other drugs. - Past Family History Mother Family Medical History: Rheumatoid Arthritis (RA) Additional Family Medical History / Comment(s): Mother had an arrythmia. She at the age of 69yrs which pt states was from kind of blockage-does not know type of blockage but states it was not in her heart. Father Family Medical History: Diabetes Mellitus, Hyperlipidemia, Hypertension, Myocardial Infarction (OK) Additional Family Medical History / Comment(s): Father at the age of 69yrs from heart disease and diabetes. He had several MIs with the first OK occuring at the age of 52 yrs. Medications and Allergies Home Medications Medication Instructions Recorded Confirmed Type Ascorbic Acid [Vitamin C] 500 mg PO DAILY 05/08/18 05/12/19 History Cholecalciferol [Vitamin D3 (25 2,000 unit PO DAILY 05/08/18 05/12/19 History Mcg = 1000 Iu)] [place]-3 Fatty Acids/Fish Oil [Fish 1 cap PO DAILY 05/08/18 05/12/19 History Oil 1,000 mg Softgel] Atorvastatin [Lipitor] 20 mg PO DAILY 04/01/19 05/12/19 History ARIPiprazole [Abilify] 15 mg PO DAILY 30 Days tab 04/09/19 05/12/19 Rx Gabapentin [Neurontin] 300 mg PO TID #90 cap 04/09/19 05/12/19 Rx LORazepam [Ativan] 1 mg PO TID PRN #21 tab 04/09/19 05/12/19 Rx ARIPiprazole IM [Abilify Maintena] 400 mg IM Q28D 05/12/19 05/12/19 History Lisinopril-Hctz 20-25 mg 1 tab PO DAILY 05/12/19 05/12/19 History [Zestoretic 20-25] PARoxetine HCL [Paxil] 40 mg PO DAILY 05/12/19 05/12/19 History traZODone HCL 50 mg PO HS 05/12/19 05/12/19 History Allergies Allergy/AdvReac Type Severity Reaction Status Date / Time oxcarbazepine Allergy Unknown Verified 05/12/19 11:49 [From Trileptal] Physical Exam Vitals: Vital Signs Temp Pulse Resp BP Pulse Ox 05/13/19 10:13 99 20 124/60 05/13/19 06:43 97.7 F 63 18 92/50 96 05/12/19 16:47 97.9 F 98 16 121/57 Intake and Output 05/12/19 05/13/19 05/13/19 22:59 06:59 14:59 Other: Weight 90.718 kg GENERAL: The patient is alert and oriented x3, not in any acute distress. Well developed, well nourished. HEENT: Pupils are round and equally reacting to light. EOMI. No scleral icterus. No conjunctival pallor. Normocephalic, atraumatic. No pharyngeal erythema. No thyromegaly. CARDIOVASCULAR: S1 and S2 present. No murmurs, rubs, or gallops. PULMONARY: Chest is clear to auscultation, no wheezing or crackles. ABDOMEN: Soft, nontender, nondistended, normoactive bowel sounds. No palpable organomegaly. MUSCULOSKELETAL: No joint swelling or deformity. EXTREMITIES: No cyanosis, clubbing, or pedal edema. NEUROLOGICAL: Gross neurological examination did not reveal any focal deficits. SKIN: No rashes. No petechiae Results CBC & Chem 7: 05/13/19 07:28 05/13/19 07:28 Labs: Abnormal Lab Results - Last 24 Hours (Table) 05/13/19 Range/Units 07:28 Chloride 96 L (98-107) mmol/L Glucose 138 H (74-99) mg/dL LDL Cholesterol, Calc 122 H (0-99) mg/dL Assessment and Plan Assessment: Hypertension: get lisinopril dose from the pharmacy, and resume Hyperlipidemia: Get Lipitor dose from the pharmacy, and resume Osteoarthritis Anxiety and depression DVT prophylaxis: Low risk patient is mobile. No heparin We recommend patient follow up with her PCP Dr. elliott in one week, she was instructed with the same Thank you for consulting us
[2019-05-13 18:36] LABS: Hemoglobin A1C 5.7 % (4.0-6.0)
[2019-05-13] MEDS: DIVALPROEX ER 500 MG TAB.ER.24H PO SCH (20:44)
[2019-05-14] MEDS: LISINOPRIL-HCTZ 20-25 MG 1 EACH TAB PO SCH (09:16)
[2019-05-14] MEDS: ATORVASTATIN 20 MG TAB PO SCH (09:16)
[2019-05-14] MEDS: CHOLECALCIFEROL 1,000 UNIT TAB PO SCH (09:16)
--- NOTE | 2019-05-14 11:05 | P.PN ---
Progress Note - Text Interval history: The patient is found in the hallway she follows me to an interview room. She indicates that her mood is stable. She was able to get sleep last night. She was compliant with the Depakote has no questions or concerns today. Staff report that she hasn't attended many groups this morning but she indicates that she will attend. She is reporting no racing thoughts she is reporting no symptoms of psychosis. Mental status exam: The patient is alert she is dressed in hospital gowns. Hygiene grooming adequate. She is pleasant and cooperative. Eye contact is good speech is fluent nonpressured. She reports no suicidal or homicidal ideation intent or plan. She is demonstrating no verbal or physical aggressiveness. Insight and judgment improving. She is oriented to person place and date. Affect is constricted today. There is no objective evidence of psychosis. She does not appear hypomanic or manic. Plan: The patient had presented reporting overwhelms and felt her medication was causing intolerable side effect. She does have a history of manic episodes and psychosis. We are in the process of changing her to a new mood stabilizer which is the Depakote. We need to allow this some time to demonstrate efficacy. I expect that she could be discharged sometime this week if she demonstrates continued clinical stability. Vital signs reviewed.
[2019-05-14] MEDS: DIVALPROEX ER 500 MG TAB.ER.24H PO SCH (21:20)
--- NOTE | 2019-05-15 09:00 | P.PN ---
Progress Note - Text Interval history: The patient is found in the hallway she follows me to an interview room. She indicates her mood is improving. She was able to sleep last night staff reported she slept 6 hours. Appetite stable. She has been talking to friends via phone. We reviewed the Depakote her questions were answered. She states that she is tolerating it without any reported side effects. She has been attending groups. She is looking forward to being discharged soon. Mental status exam: The patient is alert she is pleasant and cooperative. She presents with adequate hygiene grooming. Eye contact is appropriate speech is fluent spontaneous nonpressured. She denies having any suicidal ideation intent or plan. She reports no homicidal ideation intent or plan. She is reporting no auditory or visual hallucinations or any specific delusions. She demonstrates no tangential thinking loose associations or flight of ideas. She does not appear hypomanic or manic. Affect is euthymic. She demonstrates no verbal or physical aggressiveness she demonstrates no involuntary repetitive movements. Insight and judgment improving. Plan: The patient will continue on the current medication. [facility] and alt tomorrow. We will anticipate discharging her tomorrow if she remains clinically stable and demonstrates continued progress. [facility] will monitor her for safety. Vital signs reviewed.
[2019-05-15] MEDS: ATORVASTATIN 20 MG TAB PO SCH (09:04)
[2019-05-15] MEDS: CHOLECALCIFEROL 1,000 UNIT TAB PO SCH (09:04)
[2019-05-15] MEDS: LISINOPRIL-HCTZ 20-25 MG 1 EACH TAB PO SCH (09:04)
[2019-05-15] MEDS: DIVALPROEX ER 500 MG TAB.ER.24H PO SCH (20:41)
[2019-05-16 06:58] VITALS: BP 106/51; PULSE 68; RESP 18; TEMP 97.8
[2019-05-16] MEDS: CHOLECALCIFEROL 1,000 UNIT TAB PO SCH (09:17)
[2019-05-16] MEDS: ATORVASTATIN 20 MG TAB PO SCH (09:17)
[2019-05-16] MEDS: LISINOPRIL-HCTZ 20-25 MG 1 EACH TAB PO SCH (09:17)
--- NOTE | 2019-05-16 09:41 | P.DS ---
Providers Date of admission: 05/12/19 14:40 Expected date of discharge: 05/16/19 Attending physician: Jack Akhtar Consults: 05/12/19 14:54 Consult Physician Routine Consulting Provider: Yuni Gibson Consult Reason/Comments: medical management Do you want consulting provider notified?: Yes Primary care physician: Heike Jiumar - Discharge Diagnosis(es) (1) Bipolar 1 disorder, depressed, severe Current Visit: Yes Status: Acute Priority: High (2) Cannabis use disorder, moderate, dependence Current Visit: Yes Status: Acute Hospital Course: Brief summary of admission note: This patient is a 59-year-old single female who was admitted to the mental health unit through the emergency room. She described having suicidal ideation. She carries a diagnosis of bipolar 1 disorder. With her last admission in March she was manic with psychosis. She was stabilized with Abilify she was transitioned to Abilify maintena. She states that she found the medication overwhelmingly sedating. She also described having repetitive involuntary movements of her mouth. The side effects contributed to her feeling hopeless and depressed and she presented to the emergency room for help. For full details please refer to the psychiatric evaluation dated 05/13/2019. Summary of hospital course: The patient was admitted to the mental health unit voluntarily. We reviewed her presenting symptoms and treatment options. She presented free of any hypomanic or manic symptoms as well as any psychosis. We discussed that this may be an opportunity to change the mood stabilizing medication. We reviewed all of the other previous medication trials and she has had adverse effects to many of the antipsychotics. We decided to retrial Depakote ER 1000 mg at bedtime. So far she has been able to tolerate that medication and is reporting no side effects. We [place] a level this morning and the result is pending. The patient has reported a progressive improvement of symptoms while here. She states that she now feels hopeful. She reports no hopelessness thinking no suicidal ideation intent or plan. She was seen by internal medicine for routine history and physical exam. Social work met with the patient to complete a psychosocial assessment. She has been pleasant and cooperative. She has been attending groups. Mental status exam: The patient is alert she is an overweight female appearing her stated age. She presents with adequate hygiene grooming she is dressed in her own clothing. She reports that her mood is good she reports no hopelessness thinking no suicidal ideation intent or plan. She reports no racing thoughts. There is no observed evidence of hypomania or tram. Thought process is linear she demonstrates no tangential thinking loose associations or flight of ideas. She demonstrates no verbal or physical aggressiveness she demonstrates no involuntary repetitive movements. Insight and judgment are grossly intact. She is oriented to person place and date. Affect is euthymic and appropriately reactive. She demonstrates examples of future oriented thinking. She describes no homicidal ideation intent or plan. Impressions 1. Bipolar 1 disorder most recent depressed, cannabis use disorder moderate Plan: The patient will be discharged from the mental health unit today to return to her own home. She has been prescribed Depakote ER 1000 mg at bedtime as a mood stabilizer for her bipolar disorder. We discussed the importance of maintaining abstinence from any alcohol marijuana or any illicit drug as he substances can provoke mood symptoms an elevator safety risk. She will continue following up with [facility] for outpatient psychiatric services. We will verify the result of the Depakote level prior to her discharge today. At this time there is no imminent safety risk she is appropriate for transition to outpatient care. She is instructed to return to the hospital with any acute safety concerns. Patient Condition at Discharge: Stable Plan - Discharge Summary Discharge Rx Participant: No New Discharge Prescriptions: New Divalproex ER [Depakote ER] 1,000 mg PO HS #60 tab.er.24h Continue [place]-3 Fatty Acids/Fish Oil [Fish Oil 1,000 mg Softgel] 1 cap PO DAILY Cholecalciferol [Vitamin D3 (25 Mcg = 1000 Iu)] 2,000 unit PO DAILY Atorvastatin [Lipitor] 20 mg PO DAILY Lisinopril-Hctz 20-25 mg [Zestoretic 20-25] 1 tab PO DAILY Discontinued Ascorbic Acid [Vitamin C] 500 mg PO DAILY ARIPiprazole [Abilify] 15 mg PO DAILY 30 Days tab LORazepam [Ativan] 1 mg PO TID PRN #21 tab PRN Reason: Anxiety, Agitation Gabapentin [Neurontin] 300 mg PO TID #90 cap traZODone HCL 50 mg PO HS ARIPiprazole IM [Abilify Maintena] 400 mg IM Q28D PARoxetine HCL [Paxil] 40 mg PO DAILY Discharge Medication List Cholecalciferol [Vitamin D3 (25 Mcg = 1000 Iu)] 2,000 unit PO DAILY 05/08/18 [History] [place]-3 Fatty Acids/Fish Oil [Fish Oil 1,000 mg Softgel] 1 cap PO DAILY 05/08/18 [History] Atorvastatin [Lipitor] 20 mg PO DAILY 04/01/19 [History] Lisinopril-Hctz 20-25 mg [Zestoretic 20-25] 1 tab PO DAILY 05/12/19 [History] Divalproex ER [Depakote ER] 1,000 mg PO HS #60 tab.er.24h 05/16/19 [Rx] Follow up Appointment(s)/Referral(s): [facility] [Outside] - 05/27/19 12:00 pm (05/27/2019 @ 12:00 pm w/ Dr. Saul 05/28/2019 @ 6:00 pm w/ Kylie Loredo) Heike De La Cruz MD [Primary Care Provider] - 1-2 days Patient Instructions/Handouts: Depression (DC) Activity/Diet/Wound Care/Special Instructions: Activity and diet as tolerated. Avoid the use of street drugs and alcohol. Take all medications as prescribed. When you are in need of refills on your medications please contact your medical provider and/or outpatient psychiatrist to have this done. Please go to scheduled outpatient appointment for aftercare treatment. If symptoms return or become worse, call the crisis line at and/or go to the nearest emergency room for evaluation.
[2019-05-16 10:05] LABS: Valproic Acid (Depakene) 92.3 ug/mL
== END 2019-05-16 12:35 | disposition home or self-care (01) | DRG 885 ==
LOC: EC 10:41 → 3MHU 14:40
PROVIDERS: ADMIT Psychiatry & Neurology Psychiatry; ATTEND Psychiatry & Neurology Psychiatry
DX: F31.4 Bipolar disorder, current episode depressed, severe, without psychotic features (principal); R45.851 Suicidal ideations; E78.5 Hyperlipidemia, unspecified; F41.9 Anxiety disorder, unspecified; I10 Essential (primary) hypertension; M19.90 Unspecified osteoarthritis, unspecified site; E66.3 Overweight; Z68.37 Body mass index [BMI] 37.0-37.9, adult; Z59.0 Homelessness; Z79.899 Other long term (current) drug therapy; Z82.49 Family history of ischemic heart disease and other diseases of the circulatory system; Z83.3 Family history of diabetes mellitus; Z87.01 Personal history of pneumonia (recurrent); Z87.891 Personal history of nicotine dependence; Z91.410 Personal history of adult physical and sexual abuse
CPT/HCPCS: 80053; 80061; 80164; 80306; 82075; 83036; 84443; 84450; 84460; 85025; 99285

== ENCOUNTER → 2019-09-02 | Outpatient (CLI) | payer MEDICARE, MEDICAID ==
[2019-09-02 19:35] LABS: ALT 14 U/L (8-44); AST 15 U/L (13-35); African American GFR (CKD) 92.9 (60.0-200.0); Albumin/Globulin Ratio 1.65 (1.60-3.17); Alkaline Phosphatase 107 U/L (41-126); Globulin 2.6 g/dL (1.6-3.3); Lithium 0.5 mmol/L (0.5-1.2); Non-African American GFR(CKD) 80.1 (60.0-200.0); Total Bilirubin 0.8 mg/dL (0.3-1.2); Total Protein 6.9 g/dL (6.2-8.2); Valproic Acid (Depakene) <3.0 ug/mL (50.0-100.0)
== END | disposition home or self-care (01) ==
LOC: LABWHC1 12:15
PROVIDERS: ATTEND Psychiatry & Neurology Psychiatry
DX: Z51.81 Encounter for therapeutic drug level monitoring (principal); Z79.899 Other long term (current) drug therapy
CPT/HCPCS: 36415; 80076; 80164; 80178; 82565; 84439; 84443; 84520

== ENCOUNTER → 2019-12-13 | Outpatient (CLI) | payer MEDICARE, OTHER ==
[2019-12-13 08:24] LABS: Basophils # (A) 0.1 k/uL (0-0.2); Basophils % (A) 1 %; Eosinophils # (A) 0.3 k/uL (0-0.7); Eosinophils % (A) 3 %; HCT 40.7 % (34.0-46.0); HGB 13.2 gm/dL (11.4-16.0); Lymphocytes # (A) 2.5 k/uL (1.0-4.8); Lymphocytes % (A) 23 %; MCH 30.6 pg (25.0-35.0); MCHC 32.4 g/dL (31.0-37.0); MCV 94.5 fL (80.0-100.0); Mean Platelet Volume 7.3; Monocytes # (A) 0.5 k/uL (0-1.0); Monocytes % (A) 5 %; Neutrophils # (A) 7.3 k/uL (1.3-7.7); Neutrophils % (A) 66 %; Platelet Count 317 k/uL (150-450); RBC 4.31 m/uL (3.80-5.40)
[2019-12-13 11:09] LABS: African American GFR (CKD) 80.5 (60.0-200.0); Lithium 0.7 mmol/L (0.5-1.2); Non-African American GFR(CKD) 69.5 (60.0-200.0); T4, Free (Free Thyroxine) 0.8 ng/dL (0.80-1.80)
== END | disposition home or self-care (01) ==
LOC: LABWHC1 07:08
PROVIDERS: ATTEND Psychiatry & Neurology Psychiatry
DX: Z51.81 Encounter for therapeutic drug level monitoring (principal); Z79.899 Other long term (current) drug therapy
CPT/HCPCS: 36415; 80178; 82565; 84439; 84443; 84520; 85025

== ENCOUNTER 2020-08-12 03:51 | Emergency (ER) | payer MEDICARE, OTHER ==
[2020-08-12 03:58] VITALS: RESP 16
--- NOTE | 2020-08-12 04:05 | ED ---
URI HPI - General Chief Complaint: Upper Respiratory Infection Stated Complaint: Covid Exposure Time Seen by Provider: 08/12/20 04:05 Source: patient, EMS, RN notes reviewed, old records reviewed Mode of arrival: EMS Limitations: no limitations - History of Present Illness Initial Comments: This is a 60-year-old female who is not feeling well. Patient has had 2 weeks of not feeling well cough congestion runny nose sore throat. Patient states his symptoms are just been persistent causing her significant anxiety. No real shortness of breath. No recent known significant travel history or sick contacts. No chest pain MD Complaint: fever, cough, sore throat -: week(s) (2) Severity: mild Severity scale (1-10): 2 Quality: dull Consistency: constant Improves With: nothing Worsens With: other (none) Context: other (none) Associated Symptoms: chills, nasal congestion, cough Treatments Prior to Arrival: none - Related Data Home Medications Medication Instructions Recorded Confirmed Cholecalciferol [Vitamin D3 (25 2,000 unit PO DAILY 05/08/18 05/12/19 Mcg = 1000 Iu)] [place]-3 Fatty Acids/Fish Oil [Fish 1 cap PO DAILY 05/08/18 05/12/19 Oil 1,000 mg Softgel] Atorvastatin [Lipitor] 20 mg PO DAILY 04/01/19 05/12/19 Lisinopril-Hctz 20-25 mg 1 tab PO DAILY 05/12/19 05/12/19 [Zestoretic 20-25] Previous Rx's Medication Instructions Recorded Divalproex ER [Depakote ER] 1,000 mg PO HS #60 tab.er.24h 05/16/19 Allergies Allergy/AdvReac Type Severity Reaction Status Date / Time oxcarbazepine Allergy Unknown Verified 05/12/19 11:49 [From Trileptal] Review of Systems ROS Statement: Those systems with pertinent positive or pertinent negative responses have been documented in the HPI. ROS Other: All systems not noted in ROS Statement are negative. Past Medical History Past Medical History: Hypertension, Osteoarthritis (OA) Additional Past Medical History / Comment(s): arthritis in neck, back and L ankle, bronchitis and pneumonia in the past History of Any Multi-Drug Resistant Organisms: None Reported Past Surgical History: Orthopedic Surgery Additional Past Surgical History / Comment(s): left ankle fracture with surgery- has metal plate/screws and pins, dental work Past Anesthesia/Blood Transfusion Reactions: No Reported Reaction Past Psychological History: Anxiety, Depression Smoking Status: Former smoker Past Alcohol Use History: Occasional Past Drug Use History: None Reported - Past Family History Mother Family Medical History: Rheumatoid Arthritis (RA) Additional Family Medical History / Comment(s): Mother had an arrythmia. She at the age of 69yrs which pt states was from kind of blockage-does not know type of blockage but states it was not in her heart. Father Family Medical History: Diabetes Mellitus, Hyperlipidemia, Hypertension, Myocardial Infarction (AK) Additional Family Medical History / Comment(s): Father at the age of 69yrs from heart disease and diabetes. He had several MIs with the first AK occuring at the age of 52 yrs. General Exam Limitations: no limitations General appearance: alert, in no apparent distress Head exam: Present: atraumatic, normocephalic, normal inspection Eye exam: Present: normal appearance, PERRL, EOMI. Absent: scleral icterus, conjunctival injection, periorbital swelling ENT exam: Present: normal exam, mucous membranes moist Neck exam: Present: normal inspection. Absent: tenderness, meningismus, lymphadenopathy Respiratory exam: Present: normal lung sounds bilaterally. Absent: respiratory distress, wheezes, rales, rhonchi, stridor Cardiovascular Exam: Present: regular rate, normal rhythm, normal heart sounds. Absent: systolic murmur, diastolic murmur, rubs, gallop, clicks GI/Abdominal exam: Present: soft, normal bowel sounds. Absent: distended, tenderness, guarding, rebound, rigid Extremities exam: Present: normal inspection, full ROM, normal capillary refill. Absent: tenderness, pedal edema, joint swelling, calf tenderness Back exam: Present: normal inspection Neurological exam: Present: alert, oriented X3, CN II-XII intact Psychiatric exam: Present: normal affect, normal mood Skin exam: Present: warm, dry, intact, normal color. Absent: rash Course Vital Signs 08/12/20 03:52 Temperature 99.3 F Pulse Rate 92 Respiratory 16 Rate Blood Pressure 133/98 O2 Sat by Pulse 95 Oximetry - Reevaluation(s) Reevaluation #1: 08/12/20 06:03 Medical record is reviewed Reevaluation #2: 08/12/20 06:03 Patient informed results and questions answered Medical Decision Making - Medical Decision Making 60 female DF for evaluation patient Dese for evaluation of not feeling well viral symptoms nausea vomiting cough and congestion fevers. Patient has positive coronavirus, patient does not want. Treatment and can be discharged home - Lab Data Lab Results 08/12/20 Range/Units 04:05 Influenza Type A (PCR) Not Detected (Not Detectd) Influenza Type B (PCR) Not Detected (Not Detectd) RSV (PCR) Not Detected (Not Detectd) SARS-CoV-2 (PCR) Detected A (Not Detectd) - Radiology Data Radiology results: report reviewed (Chest x-rays negative for acute disease), image reviewed Disposition Clinical Impression: Coronavirus infection Disposition: HOME SELF-CARE Condition: Good Instructions (If sedation given, give patient instructions): Coronavirus Disease 2019 (COVID-19) Is patient prescribed a controlled substance at d/c from ED?: No Referrals: Heike De La Cruz MD [Primary Care Provider] - 1-2 days
--- NOTE | 2020-08-12 04:49 | XR ---
EXAM: XR Chest, 1 View CLINICAL HISTORY: ITS.REASON XR Reason: cough TECHNIQUE: Frontal view of the chest. COMPARISON: 01/24/2018 FINDINGS: Lungs: Unremarkable. No consolidation. Pleural space: Unremarkable. No pneumothorax. Heart: Unremarkable. No cardiomegaly. Mediastinum: Unremarkable. Bones/joints: Unremarkable. IMPRESSION: No acute pulmonary process.
[2020-08-12 06:10] VITALS: BP 132/89; PULSE 72; TEMP 99
== END 2020-08-12 06:10 | disposition home or self-care (01) ==
LOC: EC 03:51
DX: U07.1 COVID-19 (principal); I10 Essential (primary) hypertension; M19.90 Unspecified osteoarthritis, unspecified site; F41.9 Anxiety disorder, unspecified; F32.9 Major depressive disorder, single episode, unspecified; Z87.891 Personal history of nicotine dependence
CPT/HCPCS: 71045; 87636; 99284

== ENCOUNTER → 2024-06-20 | Outpatient (CLI) | payer MEDICARE, OTHER ==
[2024-06-20 11:58] LABS: Creatinine,Urine Random 241.1 mg/dL
[2024-06-20 16:30] LABS: BUN/Creat Ratio 15.57 Ratio (12.00-20.00); Blood Urea Nitrogen 10.9 mg/dL (9.0-27.0); Calcium 9.8 mg/dL (8.7-10.3); Carbon Dioxide 25.2 mmol/L (21.6-31.8); Chloride 104 mmol/L (96-109); Glucose 136 mg/dL (70-110); Potassium 4.6 mmol/L (3.5-5.5); Sodium 141 mmol/L (135-145)
[2024-06-20 16:34] LABS: Appearance,Urine Clear (Clear); Bilirubin,Urine Negative (Negative); Blood,Urine Negative (Negative); Color,Urine Yellow (Yellow); Ketones,Urine Trace (Negative); Nitrite,Urine Negative (Negative); Specific Gravity,Urine 1.028 (1.001-1.030)
[2024-06-20 17:28] LABS: Amorphous Sediment,Urine None Seen (None Seen); Bacteria,Urine 1+ (None Seen); Mucus,Urine Present; UA Starch Present (None Seen)
[2024-06-20 20:13] LABS: Microalbumin Creatinine Ratio <5 mg/g Cr (0-30)
== END | disposition home or self-care (01) ==
LOC: LABWHC1 10:44
PROVIDERS: ATTEND Internal Medicine
DX: E11.65 Type 2 diabetes mellitus with hyperglycemia (principal); R80.9 Proteinuria, unspecified
CPT/HCPCS: 36415; 80048; 81001; 82043; 82570; 83036; 84156; 87086

== ENCOUNTER → 2024-10-21 | Outpatient (CLI) | payer MEDICARE, OTHER ==
[2024-10-21 15:33] LABS: Anion Gap 12.30 mmol/L (4.00-12.00); BUN/Creat Ratio 15.83 Ratio (12.00-20.00); Blood Urea Nitrogen 9.5 mg/dL (9.0-27.0); Calcium 9.5 mg/dL (8.7-10.3); Carbon Dioxide 26.7 mmol/L (21.6-31.8); Chloride 103 mmol/L (96-109); Glucose 126 mg/dL (70-110); Potassium 4.5 mmol/L (3.5-5.5); Sodium 142 mmol/L (135-145)
== END | disposition home or self-care (01) ==
LOC: LABWHC1 11:38
PROVIDERS: ATTEND Internal Medicine
DX: I10 Essential (primary) hypertension (principal); E11.65 Type 2 diabetes mellitus with hyperglycemia; E66.9 Obesity, unspecified
CPT/HCPCS: 36415; 80048; 83036; 84443